=== PATIENT | female | born 1940 | race Caucasian/White ===

== ENCOUNTER 2019-11-02 23:06 | Emergency (ER) | payer MEDICARE, OTHER ==
[2019-11-02] MEDS ORDERED: Ondansetron ODT 4 MG TAB ONE (23:24)
[2019-11-02 23:39] LABS: #Eosinphils 0.1 thou/uL (0.0-0.7); #Lymphocytes 0.9 thou/uL (1.20-3.40); #Monocytes 0.5 thou/uL (0.11-0.59); #Neutrophils 6.5 thou/uL (1.40-6.50); %Basophils 0.1 % (0.0-1.0); %Eosinophils 0.7 % (0.0-10.0); %Lymphocytes 10.9 % (21.0-51.0); %Neutrophils 82.3 % (42.0-75.0); Mean Corpuscular HGB CONC 30.9 g/dL (32.0-36.0); Mean Corpuscular Hemoglobin 23.1 pg (27.0-31.0); Mean Platelet Volume 10.3 fL (7.4-10.4); Platelet Count 219 thou/uL (130-400); RBC Distribution Width 17.3 % (11.5-14.5); White Blood Cell (WBC) Count 7.9 thou/uL (4.8-10.8)
--- NOTE | 2019-11-02 23:45 | CT ---
CT Brain WO Con: 11/02/2019 11:24 PM CLINICAL HISTORY: Fall with head injury. IMAGING TECHNIQUE: Multiple CT images were obtained of the brain without IV contrast. COMPARISON: None. FINDINGS: Brain: There is generalized cerebral and cerebellar atrophy. There is mild chronic small vessel whit e matter ischemic change. Ventricles: Normal. No hydrocephalus. Skull: Intact. Visualized Paranasal sinuses: Clear. Mastoid air cells:Clear. Extracranial soft tissues:Normal. IMPRESSION: No acute intracranial abnormality.
[2019-11-02 23:53] LABS: ALT (SGPT) 9 U/L (8-55); AST (SGOT) 15 U/L (5-34); Albumin 4.1 g/dL (3.4-4.8); Alkaline Phosphatase 56 U/L (40-110); Anion Gap 18 mmol/L (10-20); BUN (Urea Nitrogen) 24 mg/dL (9.8-20.1); Bilirubin, Total 0.5 mg/dL (0.2-1.2); Calc. Creatinine Clearance 0 mL/min (70-130); Calcium 9.2 mg/dL (7.8-10.44); Carbon Dioxide 25 mmol/L (23-31); Chloride 97 mmol/L (98-107); Estimated GFR-MDRD 49; Globulin 2.2 g/dL (2.4-3.5); Glucose 234 mg/dL (83-110); Potassium 4.9 mmol/L (3.5-5.1); Protein, Total 6.3 g/dL (6.0-8.3); Sodium 135 mmol/L (136-145)
--- NOTE | 2019-11-03 00:13 | RAD ---
Chest AP view INDICATION: Fall with chest pain COMPARISON: April 03, 2011 FINDINGS: Lungs: Chronic lung changes are similar appearing. No consolidation is evident. Cardiac silhouette: There is been interval post-CABG change. There is a long endograft stent overlyi ng the left heart border. Pulmonary vasculature: Normal Pleural spaces: No pleural effusion or pneumothorax is demonstrated. Upper abdomen: No abnormality seen. Osseous structures: No acute osseous abnormality. Additional findings: None. IMPRESSION: No acute cardiopulmonary abnormality.
--- NOTE | 2019-11-03 00:14 | RAD ---
AP view of the pelvis INDICATION: Fall with pelvic pain COMPARISON: None. FINDINGS: Bones: Diffuse osteopenia. No acute fracture or subluxation demonstrated. Hips: Mild degenerative change of both hips. SI joints and symphysis pubis: Normal appearing. Intrapelvic contents: There are severe vascular calcifications seen involving the visualized vasculature. There are surgica l clips within the right inguinal region. IMPRESSION: No acute osseous abnormality.
--- NOTE | 2019-11-03 00:15 | RAD ---
XR Hip Lt 2-3 View INDICATION: Fall with left hip pain COMPARISON: None FINDINGS: Bones: No acute osseous abnormality. Bone mineralization appears within normal limits. Hip joint: Mild left hip osteoarthrosis. SI joints and symphysis pubis: Radiographically normal. Intrapelvic contents: Visualized bowel gas pattern is within normal limits. Surrounding soft tissues: There are severe vascular calcifications seen involving the visualized vasculature. There is injectio n granuloma overlying the left gluteal region. IMPRESSION: 1. No acute osseous abnormality.
--- NOTE | 2019-11-03 00:15 | RAD ---
XR Tib Fib Lt Leg 2 View INDICATION: Fall with left leg pain FINDINGS: Bones: No acute fracture or subluxation is evident. Joints: No acute abnormality. Soft tissues: No radiopaque foreign body is evident. IMPRESSION: No acute osseous abnormality.
--- NOTE | 2019-11-03 00:16 | RAD ---
XR Elbow Rt 4 View STANDARD INDICATION: Fall with right elbow pain FINDINGS: Bones: No acute fracture or subluxation is evident.. Joints: No joint capsular distention. Radiocapitellar alignment appears within normal limits. Soft tissues: There is soft tissue swelling involving the posterior and lateral aspect of the distal right arm. IMPRESSION: No acute osseous abnormality.
[2019-11-03 01:43] LABS: Bacteria/HPF 3+ HPF (None Seen); Bilirubin Negative (Negative); Blood, Urine Trace (Negative); Clarity Turbid (Clear); Glucose, Urine (Dipstick) Normal (Negative); Leukocyte 500 Leu/uL (Negative); Nitrite Negative (Negative); Protein, Urine (Dipstick) 20 mg/dL (Neg-Trace); Squamous Epithelial 0-3 HPF (0-3); Urobilinogen Normal mg/dL (Less than 2); WBC/HPF Greater than 50 HPF (0-3)
== END 2019-11-03 04:07 | disposition home or self-care (01) ==
LOC: ERS 23:06
DX: S81.812A Laceration without foreign body, left lower leg, initial encounter (principal); S41.111A Laceration without foreign body of right upper arm, initial encounter; R51 Headache; N39.0 Urinary tract infection, site not specified; D64.9 Anemia, unspecified; R11.2 Nausea with vomiting, unspecified; I10 Essential (primary) hypertension; F32.9 Major depressive disorder, single episode, unspecified; Z79.82 Long term (current) use of aspirin; Z79.899 Other long term (current) drug therapy; W06.XXXA Fall from bed, initial encounter
CPT/HCPCS: 36415; 70450; 71045; 72170; 80053; 81003; 81015; 82274; 84484; 85025; 93005; Q0162

== ENCOUNTER 2020-02-11 11:40 | Emergency (ER) | payer MEDICARE ==
[2020-02-11] MEDS ORDERED: Morphine 4 MG/ML VIAL ONE (12:47)
--- NOTE | 2020-02-11 13:04 | CT ---
EXAM: CT of the cervical spine without contrast HISTORY: Neck pain after falling with head trauma COMPARISON: None TECHNIQUE: Multiple contiguous axial images were obtained in a CT of the cervical spine without contr ast. Sagittal and coronal reformats were performed. FINDINGS: The vertebral bodies and intervertebral discs demonstrate normal height and alignment witho ut fracture or subluxation. No degenerative changes are present. No prevertebral soft tissue swelling is seen. The posterior facets are well aligned. Normal alignment of the skull base with the cervical spine is seen. The lung apices are unremarkable. Calcifications are seen in the carotid arteries. IMPRESSION: No evidence of acute osseous abnormality of the cervical spine.
--- NOTE | 2020-02-11 13:05 | CT ---
Exam: Head CT without contrast HISTORY: Fall. Posttraumatic pain. COMPARISON: none FINDINGS: Hemorrhage: No intraparenchymal hemorrhage or extra-axial hematoma. Brain parenchyma: Cortical gomez-white matter differentiation is preserved. No mass effect or midline shift. Basilar cisterns are patent.Stable calcification in the midbrain Ventricular system: Ventricles and sulci are patent and symmetric. Calvarium: Intact. Sinuses and mastoid air cells: Adequate aeration. Facial soft tissues: Post traumatic changes in the popliteal soft tissues and left frontal scalp. IMPRESSION: 1 No intracranial posttraumatic sequelae. 2. Post traumatic changes along the facial soft tissues and left frontal scalp
--- NOTE | 2020-02-11 13:06 | CT ---
EXAM: CT face without contrast HISTORY: Facial trauma COMPARISON: None TECHNIQUE: Multiple contiguous axial images were obtained and a CT of the face without contrast. Sagi ttal and coronal reformats were performed. FINDINGS: No facial fractures are identified. Left periorbital and facial soft tissue swelling is se en. The globes and retrobulbar soft tissues are unremarkable. The visualized paranasal sinuses are well aerated without evidence of opacification. The mastoid air cells are well aerated. Visualized intracranial structures are unremarkable. IMPRESSION: No evidence of facial fracture
[2020-02-11] MEDS ORDERED: Ondansetron PF 4 MG/2 ML Vial ONE (13:20)
--- NOTE | 2020-02-11 13:43 | RAD ---
EXAM: 3 views of the right wrist HISTORY: Wrist pain after fall COMPARISON: None FINDINGS: 3 views of the right wrist shows a fracture of the distal radius which may be intra-articul ar. Mild surrounding soft tissue swelling is seen. No degenerative changes are present. IMPRESSION: Distal radius fracture
== END 2020-02-11 14:34 | disposition home or self-care (01) ==
LOC: ERS 11:40
DX: S52.501A Unspecified fracture of the lower end of right radius, initial encounter for closed fracture (principal); S00.11XA Contusion of right eyelid and periocular area, initial encounter; S00.12XA Contusion of left eyelid and periocular area, initial encounter; I25.10 Atherosclerotic heart disease of native coronary artery without angina pectoris; E11.9 Type 2 diabetes mellitus without complications; K21.9 Gastro-esophageal reflux disease without esophagitis; F31.9 Bipolar disorder, unspecified; Z79.84 Long term (current) use of oral hypoglycemic drugs; Z79.891 Long term (current) use of opiate analgesic; Z79.899 Other long term (current) drug therapy; Z79.82 Long term (current) use of aspirin; W01.0XXA Fall on same level from slipping, tripping and stumbling without subsequent striking against object, initial encounter
CPT/HCPCS: 29125; 70450; 70486; 72125; 96374; 96375; J2270; J2405

== ENCOUNTER 2020-02-16 09:34 | Outpatient (CLI) | payer MEDICARE, OTHER ==
[2020-02-16 14:33] LABS: Hemoglobin 12.5 g/dL (12.0-16.0); Mean Corpuscular Hemoglobin 30.6 pg (27.0-31.0); Mean Corpuscular Volume 92.7 fL (78.0-98.0); Mean Platelet Volume 9.4 fL (7.4-10.4); Platelet Count 186 thou/uL (130-400); RBC Distribution Width 18.5 % (11.5-14.5); Red Blood Cell (RBC) Count 4.08 mill/uL (4.20-5.40); White Blood Cell (WBC) Count 5.3 thou/uL (4.8-10.8)
[2020-02-16 14:42] LABS: Anion Gap 13 mmol/L (10-20); BUN (Urea Nitrogen) 34 mg/dL (9.8-20.1); Calc. Creatinine Clearance 0 mL/min (70-130); Calcium 9.2 mg/dL (7.8-10.44); Carbon Dioxide 27 mmol/L (23-31); Chloride 104 mmol/L (98-107); Estimated GFR-MDRD 68; Glucose 133 mg/dL (83-110); Potassium 4.2 mmol/L (3.5-5.1); Sodium 140 mmol/L (136-145)
[2020-02-17 13:48] LABS: SARS-CoV-2 MS2 Positive; SARS-CoV-2 N Gene Negative; SARS-CoV-2 S Gene Negative; SARS-CoV-2 orf1ab Negative
== END 2020-02-16 09:35 | disposition home or self-care (01) ==
LOC: LABBT 09:34
PROVIDERS: ATTEND Orthopaedic Surgery
DX: Z01.818 Encounter for other preprocedural examination (principal); Z11.59 Encounter for screening for other viral diseases; S52.501A Unspecified fracture of the lower end of right radius, initial encounter for closed fracture
CPT/HCPCS: 80048; 85027; U0003; 87635; 93005; 93010

== ENCOUNTER 2020-02-18 09:59 | Day surgery (SDC) | payer MEDICARE ==
[2020-02-16 14:58] VITALS: BMI 22.6
[2020-02-18] MEDS ORDERED: Bupivacaine HCl 0.5%/Epinephrine 1:200,000/PF 30 ml Vial ONE (11:52)
[2020-02-18] MEDS ORDERED: PROPOFOL 200 MG/20 ML VIAL ONE (11:52)
[2020-02-18] MEDS ORDERED: Fentanyl 100 MCG/2 ML VIAL ONE ×2 (13:39→16:02)
[2020-02-18] MEDS ORDERED: Propofol 1,000 MG/100 ML VIAL IV ONE (16:14)
[2020-02-18] MEDS ORDERED: Ketamine 50 MG/ML (10ML VIAL) ONE (16:14)
--- NOTE | 2020-02-18 17:29 | RAD ---
RIGHT WRIST TWO VIEWS: 02/18/20 HISTORY: Intraoperative films. These films show pinning of a distal radial fracture. IMPRESSION: Pin placement related to distal radial fracture. POS: ZACH
[2020-02-18] MEDS ORDERED: HYDROcodone/Acetaminophen 5/325 mg Tablet ONE (18:04)
--- NOTE | 2020-02-18 22:35 | OP ---
DATE OF PROCEDURE: 02/18/2020 PROCEDURES PERFORMED: Closed reduction and percutaneous pining of distal radius fracture. PREOPERATIVE DIAGNOSIS: Displaced left distal radial fracture. POSTOPERATIVE DIAGNOSIS: Displaced left distal radial fracture. COMPLICATIONS: None. ESTIMATED BLOOD LOSS: Minimal. ERECTING CRANE OPERATOR: Davy Mueller PA-C INDICATIONS: Ms. García is a 79-year-old female, who has fallen and fractured her left distal radius. She has been indicated for open reduction and internal fixation to restore the length of the radius and restore anatomic alignment. Risks have been reviewed in detail. She has elected to proceed with the operation. DESCRIPTION OF PROCEDURE: Ms. García was identified in the preoperative holding area. Her correct extremity was marked. She was carried to the operating room. She was positioned supine. General anesthesia was induced. A multidisciplinary time- out was performed. The left upper extremity was prepped and draped in sterile fashion. We began the procedure by evaluation the fracture under intraoperative x-ray. We pulled traction on the arm and were able to reduce the distal radius fracture back into its anatomic position. We restored length as well as volar tilt. We confirmed this on orthogonal planes. Next we made a small incision over the radial styloid. A K wire was inserted into the radial styloid across the fracture. We placed a second K wire in a crossed pattern from dorsal to volar this stabilize the fracture well. There was no change in position. We took final x-ray images, confirming hardware placement and alignment was appropriate. A sterile dressing and a splint was placed. The patient was taken to the recovery room in good condition. Job ID: [id number] MTDD
== END 2020-02-18 19:15 | disposition home or self-care (01) ==
LOC: SDC 09:59
PROVIDERS: ATTEND Orthopaedic Surgery
PROC: 0PSH34Z Reposition Right Radius with Internal Fixation Device, Percutaneous Approach (ICD-10-PCS; principal; 2020-02-18)
PROC: 3E0T3BZ Introduction of Anesthetic Agent into Peripheral Nerves and Plexi, Percutaneous Approach (ICD-10-PCS; 2020-02-18)
DX: S52.531A Colles' fracture of right radius, initial encounter for closed fracture (principal); G89.18 Other acute postprocedural pain; I13.0 Hypertensive heart and chronic kidney disease with heart failure and stage 1 through stage 4 chronic kidney disease, or unspecified chronic kidney disease; E11.22 Type 2 diabetes mellitus with diabetic chronic kidney disease; N18.3 Chronic kidney disease, stage 3 (moderate); I50.32 Chronic diastolic (congestive) heart failure; E78.2 Mixed hyperlipidemia; F41.1 Generalized anxiety disorder; G89.4 Chronic pain syndrome; I25.10 Atherosclerotic heart disease of native coronary artery without angina pectoris; Z79.02 Long term (current) use of antithrombotics/antiplatelets; Z79.82 Long term (current) use of aspirin; Z79.84 Long term (current) use of oral hypoglycemic drugs; Z79.899 Other long term (current) drug therapy; Z88.2 Allergy status to sulfonamides; Z88.5 Allergy status to narcotic agent; Z88.6 Allergy status to analgesic agent; Z88.8 Allergy status to other drugs, medicaments and biological substances; Z95.1 Presence of aortocoronary bypass graft; Z95.5 Presence of coronary angioplasty implant and graft; W19.XXXA Unspecified fall, initial encounter
CPT/HCPCS: 76000; J0670; J0690; J2704; J3010

== ENCOUNTER 2020-06-30 14:00 | Inpatient (IN) | payer MEDICARE ==
[~2020-06-30 14:00] MED LIST: Iopamidol-370 76% 500 ML 1 ML ONE
[2020-06-30] MEDS ORDERED: Ondansetron PF 4 MG/2 ML Vial ONE (15:20)
[2020-06-30 15:22] LABS: #Lymphocytes 1.8 thou/uL (1.20-3.40); #Monocytes 1.2 thou/uL (0.11-0.59); #Neutrophils 6.1 thou/uL (1.40-6.50); %Basophils 0.1 % (0.0-1.0); %Eosinophils 0.5 % (0.0-10.0); %Lymphocytes 19.5 % (21.0-51.0); %Monocytes 13.1 % (0.0-10.0); %Neutrophils 66.8 % (42.0-75.0); Mean Corpuscular Hemoglobin 34.3 pg (27.0-31.0); Mean Corpuscular Volume 97.9 fL (78.0-98.0); Mean Platelet Volume 7.4 fL (7.4-10.4); Platelet Count 327 thou/uL (130-400); RBC Distribution Width 12.5 % (11.5-14.5); Red Blood Cell (RBC) Count 4.67 mill/uL (4.20-5.40); White Blood Cell (WBC) Count 9.1 thou/uL (4.8-10.8)
[2020-06-30 15:37] LABS: Anion Gap 19 mmol/L (10-20); BUN (Urea Nitrogen) 19 mg/dL (9.8-20.1); Calc. Creatinine Clearance 0 mL/min (70-130); Carbon Dioxide 24 mmol/L (23-31); Chloride 94 mmol/L (98-107); Estimated GFR-MDRD 41; Sodium 135 mmol/L (136-145)
[2020-06-30 15:38] LABS: ALT (SGPT) 8 U/L (8-55); AST (SGOT) 16 U/L (5-34); Albumin 4.5 g/dL (3.4-4.8); Alkaline Phosphatase 83 U/L (40-110); Bilirubin, Total 0.5 mg/dL (0.2-1.2); Calcium 9.3 mg/dL (7.8-10.44); Globulin 3.2 g/dL (2.4-3.5); Glucose 209 mg/dL (83-110); Lipase 15 U/L (8-78); Protein, Total 7.7 g/dL (6.0-8.3)
[2020-06-30 15:44] LABS: Potassium 2.4 mmol/L (3.5-5.1)
[2020-06-30 15:59] LABS: CKMB 2.4 ng/mL (0-6.6)
[2020-06-30] MEDS ORDERED: Aspirin 325 MG TAB ONE (16:38)
--- NOTE | 2020-06-30 16:57 | CT ---
CT ABDOMEN AND PELVIS WITH IV CONTRAST: Date: 06/30/2020 INDICATION: Abdominal pain. Diarrhea. Comparison made to prior CT abdomen and pelvis from [address] of chest upper abdomen from 2016. FINDINGS: Lung bases clear. Liver, spleen, and pancreas appear unremarkable. Stomach and duodenum unremarkable. Adrenal glands normal. Left renal cyst from the superior left kidney is a stable finding. This cyst measures up to 5.0 cm di ameter. There are numerous smaller cysts seen in both kidneys measuring up to 1.0 cm. Kidneys otherwi se unremarkable. Small bowel loops normal caliber. Review of the colon shows fluid and scattered stool throughout the colon consistent with history of d iarrhea. There is mural thickening throughout the colon, most prominent involving the left colon and sigmoid. Surrounding inflammatory haziness is seen involving the sigmoid and rectum. No significant d iverticulosis. Colitis is indicated. Recommend GI consultation and consider colonoscopy. Aorta is calcified but normal caliber. No adenopathy. No significant free fluid. Urinary bladder is distended and otherwise unremarkable. Patient appears to be post hysterectomy. Osseous structures unremarkable. Degenerative disc changes in the lumbar spine most prominent at L5-S 1. Anterolisthesis at L4-5. IMPRESSION: 1. Mural thickening of the colon, most prominent involving the left colon and sigmoid with surroundi ng hazy inflammatory change. Colitis is suspected. Consider colonoscopy to further evaluate. 2. There are renal cystic lesions as described with a large cyst from the superior left kidney which is stable. POS: AGW
[2020-06-30 17:22] LABS: Bilirubin Negative (Negative); Blood, Urine Trace (Negative); Glucose, Urine (Dipstick) Negative (Negative); Ketone, Urine Negative (Negative); Leukocyte Negative (Negative); Nitrite Negative (Negative); Protein, Urine (Dipstick) Negative (Neg-Trace); Urobilinogen 0.2 mg/dL (Less than 2); pH, Urine 5.5 (5.0-9.0)
[2020-06-30 17:28] LABS: Clarity Clear (Clear)
[2020-06-30 17:31] LABS: Bacteria/HPF None Seen HPF (None Seen); Squamous Epithelial 0-3 HPF (0-3); WBC/HPF 0-3 HPF (0-3)
[2020-06-30] MEDS ORDERED: Acetaminophen 325 MG TAB PO PRN (17:51)
[2020-06-30] MEDS ORDERED: Ondansetron PF 4 MG/2 ML Vial IVP PRN (17:51)
[2020-06-30] MEDS ORDERED: Magnesium 2 GM/50 ML 2 GM in Premix Bag 1 BAG IVPB SCH (18:00)
[2020-06-30] MEDS ORDERED: metroNIDAZOLE 500 MG/100 ML BAG ONE (18:07)
[2020-06-30] MEDS ORDERED: Magnesium 2 GM/50 ML BAG (IN WATER) ONE (18:07)
[2020-06-30 18:40] LABS: Lactic Acid 1.1 mmol/L (0.5-2.2)
[2020-06-30 18:41] LABS: Troponin I 0.061 ng/mL (< 0.028)
[2020-06-30] MEDS ORDERED: Ciprofloxacin Lactate/D5W 200 MG in Premix Bag 1 BAG IVPB ONE (19:15)
[2020-06-30 22:23] LABS: Troponin I 0.065 ng/mL (< 0.028)
[2020-06-30] MEDS ORDERED: Ciprofloxacin Lactate/D5W 200 MG in Premix Bag 1 BAG IVPB SCH (22:30)
[2020-06-30] MEDS: metroNIDAZOLE 500 MG in Premix Bag 1 BAG IVPB SCH (22:47)
[2020-06-30] MEDS: TICAGRELOR 90 MG TABLET PO SCH (22:49)
[2020-06-30] MEDS: Montelukast Sodium 10 mg Tablet PO SCH (22:49)
[2020-06-30] MEDS: Ferrous Sulfate 325 MG TAB PO SCH (22:50)
[2020-06-30] MEDS ORDERED: ALPRAZolam 1 MG TAB PO SCH (23:45)
--- NOTE | 2020-07-01 00:31 | HP ---
CHIEF COMPLAINT: Abdominal pain, diarrhea. HISTORY OF PRESENT ILLNESS: The patient is a 79-year-old female with a history of coronary artery disease. She states that she has had about seven stents. She currently resides in a [facility]. She presents to the hospital with worsening diarrhea, which has been going on for the past four months. She states that she has been having some abdominal pain associated with that. She has had decreased appetite for the past few months. She denies any fevers or chills. The patient states that she has never had a colonoscopy. I was notified that in the jail she was checked for COVID and C difficile, which were negative. PAST MEDICAL HISTORY: She has a history of coronary artery disease. She has a history of falls, urinary tract infections, hypertension, diabetes, chronic kidney disease stage 3. She has seen Dr. Strauss in the past. She has had a bypass, iron deficiency anemia, general anxiety disorder, and chronic pain syndrome. PAST SURGICAL HISTORY: She has had stents x7 and coronary artery bypass grafting . FAMILY HISTORY: Mother, unknown history of heart disease or stroke. SOCIAL HISTORY: She is a nonsmoker and nonalcoholic drinker. She lives in assisted living. She is a full code. ALLERGIES: SHE IS ALLERGIC TO BONIVA, LISINOPRIL, MORPHINE AND TRICOR. MEDICATIONS: As of the followin. Metformin 500 mg b.i.d. 2. Metoprolol 50 mg daily. 3. Furosemide 20 mg b.i.d. 4. Atorvastatin 40 mg daily. 5. Ipratropium one puff every 6 hours. 6. Singulair 10 mg daily. 7. Alprazolam 0.5 twice a day. 8. Advair 2 puffs twice a day. 9. Brilinta 90 mg twice a day. 10. Aspirin 81 mg daily. 11. Ranexa 1000 mg twice a day. REVIEW OF SYSTEMS: All negative except for the ones mentioned above in the HPI. PHYSICAL EXAMINATION: VITAL SIGNS: Temperature of 97.8, respirations 16, 98% on room air, blood pressure 122/69, heart rate 84. GENERAL: She is awake, alert, and oriented x3. Does not appear in distress. She appears frail. CV: S1, S2 present. No murmurs, rubs, or gallops. LUNGS: Clear to auscultation. No rhonchi or wheezes noted. ABDOMEN: Soft. Bowel sounds are present x2. She has pain upon palpation to all quadrants. EXTREMITIES: Lower extremity, no edema. Pedal pulses are present x2. NEUROVASCULAR: No focal deficits noted. SKIN: No cuts, lesions or bruises noted. LABORATORY RESULTS: As of the following; lactic is 1.1. Urine appeared normal. Magnesium 1.5. Troponin of 0.080. She denies any chest pain. Lipase was normal. Sodium of 135, potassium of 2.4, BUN of 19, creatinine 1.25. Her lactic acid initially was 2.5. WBCs of 9.1, hemoglobin of 16.0, hematocrit of 45.7. Her platelets were 327. She did have a CT of abdomen and pelvis, which indicated mural thickening of the colon, most prominent involving the left colon and sigmoid and surrounding hazy inflammatory changes. Colitis should be suspected. Consider colonoscopy. She also has a renal cyst. ASSESSMENT AND PLAN: The patient is a very pleasant 79-year-old female, who presents to the hospital with diarrhea. 1. Chronic diarrhea. She has had diarrhea for about four months. We will check stool studies. We will get GI to see this patient. I will get TSH. This patient could have possible ischemic colitis, this is a possibility given her significant history of coronary artery disease. However, will rule out infectious first. May also get stool osmolality to help further differentiate. I will start some IV fluids and I will start her on antibiotics, Cipro and Flagyl for now. We will recheck her COVID and her Clostridium difficile. 2. Renal cyst. She needs to follow up this as an outpatient. 3. Electrolyte abnormalities. We will replace it. 4. Acute kidney injury. We will continue hydration and continue to monitor. 5. Urinary retention. The patient had significant amount of urine in her bladder. She required catheterization. We will continue to monitor this. 6. Mildly elevated troponins, could be demand related. She has not had an echocardiogram for a significantly long period of time. I will go ahead and order an echocardiogram. She denies any chest pain at this time. 7. Deep venous thrombosis prophylaxis. I will put patient on some heparin and I will also resume her home medications. Job ID: [id number]
[2020-07-01] MEDS: NS 0.9% w/ 40 MEQ KCL 1,000 ML IV SCH ×7 (00:45→21:44)
[2020-07-01 01:59] LABS: #Eosinphils 0.1 thou/uL (0.0-0.7); #Lymphocytes 1.3 thou/uL (1.20-3.40); #Neutrophils 4.3 thou/uL (1.40-6.50); %Basophils 0.7 % (0.0-1.0); %Lymphocytes 19.9 % (21.0-51.0); %Monocytes 14.6 % (0.0-10.0); %Neutrophils 63.9 % (42.0-75.0); Hemoglobin 13.1 g/dL (12.0-16.0); Mean Corpuscular HGB CONC 36.1 g/dL (32.0-36.0); Mean Corpuscular Hemoglobin 35.6 pg (27.0-31.0); Mean Corpuscular Volume 98.8 fL (78.0-98.0); Mean Platelet Volume 7.3 fL (7.4-10.4); Platelet Count 223 thou/uL (130-400); RBC Distribution Width 12.5 % (11.5-14.5); Red Blood Cell (RBC) Count 3.66 mill/uL (4.20-5.40); White Blood Cell (WBC) Count 6.7 thou/uL (4.8-10.8)
[2020-07-01 02:17] LABS: Troponin I 0.069 ng/mL (< 0.028)
[2020-07-01 02:24] LABS: Anion Gap 12 mmol/L (10-20); BUN (Urea Nitrogen) 13 mg/dL (9.8-20.1); Calc. Creatinine Clearance 47 mL/min (70-130); Calcium 7.8 mg/dL (7.8-10.44); Carbon Dioxide 21 mmol/L (23-31); Chloride 108 mmol/L (98-107); Estimated GFR-MDRD 81; Glucose 139 mg/dL (83-110); Magnesium 1.6 mg/dL (1.6-2.6); Potassium 2.5 mmol/L (3.5-5.1); Sodium 138 mmol/L (136-145)
[2020-07-01] MEDS: metroNIDAZOLE 500 MG in Premix Bag 1 BAG IVPB SCH ×3 (03:30→18:50)
[2020-07-01] MEDS: Ferrous Sulfate 325 MG TAB PO SCH ×2 (08:43→10:51)
[2020-07-01] MEDS: Enoxaparin Sodium 40 MG/0.4 ML SYRINGE SC SCH ×2 (08:43→11:30)
[2020-07-01] MEDS: Aspirin 81 mg Enteric Coated Tablet PO SCH ×2 (08:43→10:51)
[2020-07-01] MEDS: TICAGRELOR 90 MG TABLET PO SCH ×2 (08:43→10:52)
[2020-07-01] MEDS: Atorvastatin Calcium 40 MG TAB PO SCH ×2 (08:44→10:51)
[2020-07-01 14:52] LABS: SARS-CoV-2 MS2 Positive; SARS-CoV-2 N Gene Negative; SARS-CoV-2 S Gene Negative; SARS-CoV-2 by NAA Not Detected (NotDetected); SARS-CoV-2 orf1ab Negative
--- NOTE | 2020-07-01 17:56 | PDOC.HOSPP ---
- Subjective Encounter Date: 07/01/20 Encounter Time: 17:54 Subjective: This is a 79-year-old female who was admitted overnight with a complaint of ongoing diarrhea for the past couple months. She recently ruled out for C. difficile colitis just under a week ago. She continues to have profuse watery diarrhea. She had no fever and no abdominal pain. She had a CT of the abdomen and pelvis that showed what appears to be sigmoid colitis. GI was asked to evaluate her. We will continue supportive care with volume resuscitation and IV antibiotics. Her electrolytes will be replaced. - Objective Vital Signs & Weight: Vital Signs (12 hours) Pulse Pulse BP BP 07/01/20 09:55 75 80 131/58 L 146/61 H Weight Admit Weight 100 lb 9 oz Weight 100 lb 9 oz I&O: 06/30/20 07/01/20 07/02/20 06:59 06:59 06:59 Intake Total 2074 Balance 2074 Result Diagrams: 07/01/20 01:44 07/01/20 01:44 Radiology Reviewed by me: Yes EKG Reviewed by me: Yes Hospitalist ROS - Review of Systems Constitutional: reports: fever Gastrointestinal: reports: nausea, diarrhea - Medication Medications: Active Medications Generic Name Dose Route Start Last Admin Trade Name Freq PRN Reason Stop Dose Admin Aspirin 81 mg 07/01/20 09:00 07/01/20 10:51 Aspirin 81 Mg Enteric Coated Tablet PO Not Given DAILY DORY Atorvastatin Calcium 40 mg 07/01/20 09:00 07/01/20 10:51 Atorvastatin Calcium 40 Mg Tab PO Not Given DAILY DORY Enoxaparin Sodium 40 mg 07/01/20 09:00 07/01/20 11:30 Enoxaparin Sodium 40 Mg/0.4 Ml Syringe SC 40 mg 0900 DORY Administration Potassium Chloride/Sodium Chloride 1,000 mls @ 250 mls/hr 06/30/20 17:30 07/01/20 11:30 Ns 0.9% W/ 40 Meq Kcl IV 1,000 mls .Q4H DORY Administration Metronidazole 500 mg/ Device 100 mls @ 100 mls/hr 06/30/20 18:00 07/01/20 10:17 IVPB 100 mls 0200,1000,1800 DORY Administration Ciprofloxacin/Dextrose 400 mg/ 200 mls @ 200 mls/hr 07/01/20 09:00 07/01/20 08:46 Device IVPB 200 mls Q12HR DORY Administration Montelukast Sodium 10 mg 06/30/20 21:00 06/30/20 22:49 Montelukast Sodium 10 Mg Tablet PO 10 mg HS DORY Administration Ranolazine 1,000 mg 06/30/20 21:00 07/01/20 10:52 Ranolazine 500 Mg Tab PO Not Given BID DORY - Exam General Appearance: awake alert, ill appearing Eye: PERRL ENT: normocephalic atraumatic, dry oral mucosa Neck: supple, symmetric, no lymphadenopathy Heart: RRR, no murmur, no gallops, no rubs, normal peripheral pulses Respiratory: CTAB, no wheezes, no rales, normal chest expansion Gastrointestinal: soft, non-tender, non-distended, normal bowel sounds Neurological: cranial nerve grossly intact, normal sensation to touch, no focal deficits Musculoskeletal: normal tone Psychiatric: normal affect, A&O x 3 Hosp A/P (1) Colitis Code(s): K52.9 - NONINFECTIVE GASTROENTERITIS AND COLITIS, UNSPECIFIED Status: Acute Plan: Involving the sigmoid colon. I agree with empiric IV antibiotics. Continue volume resuscitation. GI services were consulted and we await their recommendations. (2) Diarrhea Code(s): R19.7 - DIARRHEA, UNSPECIFIED Status: Acute Qualifiers: Diarrhea type: infectious Qualified Code(s): A09 - Infectious gastroenteritis and colitis, unspecified - Plan old records reviewed/req, continue antibiotics, PT/OT, DVT proph w/SCDs
[2020-07-01] MEDS: ALPRAZolam 1 MG TAB PO SCH (20:48)
[2020-07-01] MEDS: Montelukast Sodium 10 mg Tablet PO SCH (20:48)
[2020-07-01] MEDS: valACYclovir 500 MG TAB PO SCH (20:48)
[2020-07-01] MEDS ORDERED: ALPRAZolam 1 MG TAB PO SCH (21:00)
--- NOTE | 2020-07-01 22:29 | CON ---
DATE OF CONSULTATION: REASON FOR CONSULT: Diarrhea. HISTORY OF PRESENT ILLNESS: Ms. García's history comes from reviewing the chart, talking to the nurses at the [facility], and talking to the nurse here in the hospital as well as the admitting physician. Ms. García is a 79-year-old. She is a poor historian. She states that she has been having diarrhea for five months and she has been admitted to kind of figure out what is going on with her. She cannot quantify how often the stool is or if it is loose all the time or watery. She states she is having sharp pain in her lower abdomen after she reports she has the diarrhea. She does not know if there is blood there. She states that she is here to find out. In talking with the nurse, she has definitely had loose stools about three or four today. It has been watery. There has been no overt blood noted. Patient has had no fever. She has not complained of any nausea or vomiting here. In talking with the nurse at the [facility], the patient seems to become more forgetful more recently. Also, she was complaining of diarrhea probably for the last 3 to 4 weeks. The nurse does not recall whether or not she has had antibiotics, but reported that she had been tested for COVID at the end of May and for Clostridium difficile and both tests were negative. Ms. García was seen by my partner, Dr. Ольга Martines, on a virtual visit about a month ago, but the focus of her complaints at that time were reflux and regurgitation with changing her medications to lansoprazole and adding a nocturnal H2 oanh. It seemed that her symptoms were much better at her visit yesterday, however, the visit yesterday, the focus was on diarrhea. Dr. Martines really could not make head or tails of the symptoms. Apparently, the patient's primary care physician or the mid-level provider was there recently to see her at the assisted living [facility] and they could not really make much of her symptoms and had placed her on some Lomotil p.r.n. As the patient was having quite a bit of diarrhea per the nurses and pretty upset, the recommendation was for her to be admitted to the hospital for further evaluation. The patient denies any knowledge of melena, hematochezia, or hematemesis. She denies having fever, but she tells me to check with the assisted living facility she is at. She does not know if she has been on recent antibiotics. She reports she has been treated at [facility] and at [facility] and in [place] in the past. She gets quite frustrated when I asked her questions about her medical history. PAST MEDICAL HISTORY: It seems she is diabetic and has been on metformin. She has also had repetitive urinary tract infections. She has a history of hypertension; chronic kidney disease, stage 3; history of anemia in the past; history of coronary artery bypass in the past; anxiety disorder; and reflux. PAST SURGICAL HISTORY: Cardiac stent x7, coronary artery bypass grafting, the time of this is unknown, seems that she may have seen Dr. Swift in the past. FAMILY HISTORY: Unknown. Mother may have had heart disease or stroke. SOCIAL HISTORY: Patient states she has not been a drinker. She is not a smoker. She lives in an assisted living at [facility]. I have tried to contact their listed primary contact, her daughter, Melany Robins, and there was no answer. Apparently, talking with the nurses at the assisted living, they made a call yesterday. They were telling me that if she was going to be admitted and had to leave a voicemail, have not heard back. ALLERGIES: BONIVA, LISINOPRIL, MORPHINE, AND TRICOR. MEDICATIONS: At the assisted living facility include; 1. Zofran. 2. Ipratropium. 3. Prevacid. 4. Alprazolam. 5. Hydrocodone. 6. Aspirin. 7. Montelukast. 8. Advair. 9. Combivent. 10. Iron. 11. Furosemide 40 a day. 12. Valtrex. 13. Atorvastatin. 14. Metoprolol. 15. Potassium. 16. Metformin 500 b.i.d. 17. Ranexa. 18. Brilinta. 19. Hydrocodone p.r.n. REVIEW OF SYSTEMS: Not able to be obtained as the patient is very vague about symptoms, timing of symptoms, and previous evaluations. PRESENT MEDICATIONS: 1. Tylenol. 2. Xanax. 3. Ecotrin. 4. Lipitor. 5. Cipro. 6. Lovenox. 7. Iron. 8. Metronidazole. 9. Singulair. 10. Zofran. 11. Normal saline with 40 of K. 12. Brilinta. PHYSICAL EXAMINATION: GENERAL: Patient is trying to climb in back into bed. The nurse is with her. VITAL SIGNS: Temperature is 96.3; 97.6 last night. She has been afebrile since admission. Pulse 75, blood pressure 131/58. GENERAL: She is thin and frail. She is alert and oriented to person, place, and time. She knows what hospital she is at. She can tell me her daughter's name. Again, she is very evasive with regard to the details of her symptoms and previous evaluations. She seems very frustrated. Cannot recall about previous testing in terms of endoscopies or cross-sectional imaging, but states she is to check with the other places where she has had those done, but other than [facility], she is not clear where she has had other testing done. LUNGS: Clear. HEART: Regular without clicks or murmurs. ABDOMEN: Soft, nontender, and scaphoid. EXTREMITIES: No clubbing, cyanosis, or edema. SKIN: Without rashes. NEUROLOGIC: She has no asterixis. Reflexes are intact bilaterally. LABORATORIES: White count 6.7; hemoglobin is 13.1, it was 16 yesterday; MCV is 98; platelet count 223; hemoglobin was 9 back in October. Sodium 138, potassium 2.5, BUN and creatinine 13 and 0.7. Lactic acid was 1.1 yesterday in the ER. Magnesium is 1.6. Calcium is 7.8. Troponins were negative. TSH is 1.055 on 06/30. She has had normal lipase on admission. Albumin is 4.5, protein 7.7. AST and ALT 16 and 8, bilirubin 0.5. Magnesium 1.5 on admission, it is 1.6 this morning. Hemoglobin A1c was 6.8 in February. Urinalysis; 4 to 6 red blood cells. Back in April, she had a lot of leukocyte esterase and bacteria, ova and parasites are pending. Clostridium difficile was negative on 06/23. Stool occult blood negative on 11/13. IMAGING: CAT scan of the abdomen and pelvis performed on 06/30 showed some possible inflammation in the colon. No other abnormalities were noted. ASSESSMENT: 1. This is a 79-year-old female, who lives at an assisted living and has seen my partner, Ольга Martines once for reflux about a month ago and now more recently was admitted mainly out of frustration about being unable to figure out her exact symptoms and what was going on via telehealth visit. She reported diarrhea for five months, which was not reported on the visit just a month ago and it seems the staff indicates maybe for a couple of weeks she has had diarrhea. It is unclear if she has had antibiotics at that time. Although it appears she had a urine tract infection in April. There has been some concern at the snf unit. She has become a little more argumentative with me. She really does not know much of her history and I wonder if she is developing some dementia which is exacerbating the other factors. 2. Here, she has been found to have some inflammation possibly in her sigmoid colon and rectum on a scan, although there has been no stool studies obtained yet. 3. Hypokalemia, mild. 4. History of reflux, for which she saw my partner, Dr. Ольга Martines, recently. RECOMMENDATIONS: 1. With regard to her diarrhea, it is unclear if this is acute or chronic. We will try to get in touch with the patient's PCP. It seems some stool studies were done about a week ago and that were negative for Clostridium difficile. She is on metformin. Differential diagnosis would include ischemic colitis, but there has been no signs of bleeding or cramping; infectious colitis; diarrhea from metformin; diarrhea from a microscopic colitis. We would start with stool studies. We would try to clarify her cardiac history. We will stop her iron in light of the fact that she may need an endoscopy while she is here to figure out what her symptoms are. She would need to have a cardiac clearance or maybe discussion with her manager bank before to proceed with endoscopy as really there is not much known about the patient here from a cardiovascular risk standpoint. We will follow along with you. 2. We will again try to contact the patient's daughter. Job ID: [id number]
[2020-07-02] MEDS: metroNIDAZOLE 500 MG in Premix Bag 1 BAG IVPB SCH ×3 (01:53→17:02)
[2020-07-02 05:12] LABS: #Eosinphils 0.1 thou/uL (0.0-0.7); #Lymphocytes 1.1 thou/uL (1.20-3.40); #Monocytes 0.5 thou/uL (0.11-0.59); #Neutrophils 3.4 thou/uL (1.40-6.50); %Basophils 0.7 % (0.0-1.0); %Eosinophils 1.5 % (0.0-10.0); %Lymphocytes 21.9 % (21.0-51.0); %Monocytes 8.9 % (0.0-10.0); Hemoglobin 11.2 g/dL (12.0-16.0); Mean Corpuscular HGB CONC 34.4 g/dL (32.0-36.0); Mean Corpuscular Hemoglobin 34.6 pg (27.0-31.0); Mean Platelet Volume 7.1 fL (7.4-10.4); Platelet Count 196 thou/uL (130-400); RBC Distribution Width 12.6 % (11.5-14.5); Red Blood Cell (RBC) Count 3.25 mill/uL (4.20-5.40); White Blood Cell (WBC) Count 5.1 thou/uL (4.8-10.8)
[2020-07-02 05:27] LABS: Anion Gap 12 mmol/L (10-20); BUN (Urea Nitrogen) Less than 4 mg/dL (9.8-20.1); Calc. Creatinine Clearance 57 mL/min (70-130); Calcium 8.2 mg/dL (7.8-10.44); Carbon Dioxide 20 mmol/L (23-31); Chloride 113 mmol/L (98-107); Estimated GFR-MDRD Greater than 90; Glucose 109 mg/dL (83-110); Potassium 3.6 mmol/L (3.5-5.1); Sodium 141 mmol/L (136-145)
[2020-07-02] MEDS: Pantoprazole 40 MG VIAL IVP SCH (09:00)
[2020-07-02] MEDS: Metoprolol Tartrate 50 MG TAB PO SCH (09:00)
[2020-07-02] MEDS: Atorvastatin Calcium 40 MG TAB PO SCH (09:00)
[2020-07-02] MEDS: valACYclovir 500 MG TAB PO SCH ×2 (09:00→20:17)
[2020-07-02] MEDS: Enoxaparin Sodium 40 MG/0.4 ML SYRINGE SC SCH (09:00)
[2020-07-02] MEDS: Aspirin 81 mg Enteric Coated Tablet PO SCH (09:01)
[2020-07-02] MEDS: NS 0.9% w/ 40 MEQ KCL 1,000 ML IV SCH ×2 (11:11→20:24)
--- NOTE | 2020-07-02 13:48 | PDOC.HOSPP ---
- Subjective Encounter Date: 07/02/20 Encounter Time: 13:47 Subjective: This is a 79-year-old patient seen and examined today. She presented to the hospital with couple weeks onset of profuse watery diarrhea. She is being evaluated by GI service. She denied any recent antibiotic use. Her stool C. difficile was negative. Stool studies are still pending at this time. She had a CT of the abdomen and pelvis that showed sigmoid colitis. She is on empiric IV antibiotics. We will continue this for now. GI continues to evaluate her. I will defer to them about any potential intervention. - Objective Vital Signs & Weight: Vital Signs (12 hours) Temp Pulse Resp BP Pulse Ox 07/02/20 11:51 97.4 F L 07/02/20 11:08 73 16 112/53 L 97 07/02/20 07:20 98.4 F 85 16 121/56 L 96 07/02/20 03:50 97.7 F 86 18 117/61 98 Weight Admit Weight 100 lb 9 oz Weight 105 lb 11.2 oz I&O: 07/01/20 07/02/20 07/03/20 06:59 06:59 06:59 Intake Total 2075 2690 Output Total 300 Balance 2075 2390 Result Diagrams: 07/02/20 04:18 07/02/20 04:18 Radiology Reviewed by me: Yes EKG Reviewed by me: Yes Hospitalist ROS - Review of Systems ROS unobtainable: due to mental status Constitutional: reports: fever Gastrointestinal: reports: nausea, abdominal pain, diarrhea - Medication Medications: Active Medications Generic Name Dose Route Start Last Admin Trade Name Joseq PRN Reason Stop Dose Admin Alprazolam 0.5 mg 07/01/20 21:00 07/01/20 20:48 Alprazolam 1 Mg Tab PO 0.5 mg HS DORY Administration Aspirin 81 mg 07/01/20 09:00 07/02/20 09:01 Aspirin 81 Mg Enteric Coated Tablet PO 81 mg DAILY DORY Administration Atorvastatin Calcium 40 mg 07/01/20 09:00 07/02/20 09:00 Atorvastatin Calcium 40 Mg Tab PO 40 mg DAILY DORY Administration Enoxaparin Sodium 40 mg 07/01/20 09:00 07/02/20 09:00 Enoxaparin Sodium 40 Mg/0.4 Ml Syringe SC 40 mg 09 DORY Administration Metronidazole 500 mg/ Device 100 mls @ 100 mls/hr 06/30/20 18:00 07/02/20 11:11 IVPB 100 mls 0200,1000,1800 DORY Administration Ciprofloxacin/Dextrose 400 mg/ 200 mls @ 200 mls/hr 07/01/20 09:00 07/02/20 09:01 Device IVPB 200 mls Q12HR DORY Administration Potassium Chloride/Sodium Chloride 1,000 mls @ 75 mls/hr 07/01/20 19:45 07/02/20 11:11 Ns 0.9% W/ 40 Meq Kcl IV 1,000 mls .[id number] DORY Administration Metoprolol Tartrate 50 mg 07/02/20 09:00 07/02/20 09:00 Metoprolol Tartrate 50 Mg Tab PO 50 mg DAILY DORY Administration Montelukast Sodium 10 mg 06/30/20 21:00 07/01/20 20:48 Montelukast Sodium 10 Mg Tablet PO 10 mg HS DORY Administration Pantoprazole Sodium 40 mg 07/02/20 09:00 07/02/20 09:00 Pantoprazole 40 Mg Vial IVP 40 mg DAILY DORY Administration Ranolazine 1,000 mg 06/30/20 21:00 07/02/20 09:01 Ranolazine 500 Mg Tab PO 1,000 mg BID DORY Administration Valacyclovir HCl 500 mg 07/01/20 21:00 07/02/20 09:00 Valacyclovir 500 Mg Tab PO 500 mg BID DORY Administration - Exam General Appearance: awake alert, ill appearing ENT: normocephalic atraumatic, no oropharyngeal lesions Neck: supple, symmetric, no lymphadenopathy Heart: RRR, no murmur, no gallops, normal peripheral pulses Respiratory: CTAB, no wheezes, no rales Gastrointestinal: soft, tender to palpation Neurological: cranial nerve grossly intact, normal sensation to touch Musculoskeletal: generalized weakness Psychiatric: normal affect, A&O x 3 Hosp A/P (1) Colitis Code(s): K52.9 - NONINFECTIVE GASTROENTERITIS AND COLITIS, UNSPECIFIED Status: Acute (2) Diarrhea Code(s): R19.7 - DIARRHEA, UNSPECIFIED Status: Acute Qualifiers: Diarrhea type: infectious Qualified Code(s): A09 - Infectious gastroenteritis and colitis, unspecified - Plan #1. Sigmoid colitis. Continue empiric IV antibiotics. We appreciate GI further help. She will probably benefit from colonoscopy in the next couple weeks post discharge hospitalization. 2. Persistent diarrhea. Unclear etiology however. She ruled out for C. difficile colitis. I will treat her symptoms now. We will try her on some Questran. We will continue her Imodium.
[2020-07-02] MEDS ORDERED: GoLYTELY 4,000 ml Bottle PO SCH (14:15)
[2020-07-02] MEDS: Montelukast Sodium 10 mg Tablet PO SCH (20:17)
[2020-07-02] MEDS: ALPRAZolam 1 MG TAB PO SCH (20:17)
[2020-07-02] MEDS ORDERED: Cholestyramine/Aspartame 4 gm Packet PO SCH (22:00)
[2020-07-03] MEDS: metroNIDAZOLE 500 MG in Premix Bag 1 BAG IVPB SCH ×3 (01:09→18:06)
[2020-07-03 04:41] LABS: Anion Gap 12 mmol/L (10-20); BUN (Urea Nitrogen) Less than 4 mg/dL (9.8-20.1); Calc. Creatinine Clearance 52 mL/min (70-130); Calcium 8.2 mg/dL (7.8-10.44); Carbon Dioxide 22 mmol/L (23-31); Chloride 114 mmol/L (98-107); Estimated GFR-MDRD 86; Glucose 108 mg/dL (83-110); Potassium 4.3 mmol/L (3.5-5.1); Sodium 144 mmol/L (136-145)
[2020-07-03 04:58] LABS: Band 15 % (5-11); Eosinophils 2 % (0-10); Hemoglobin 11.6 g/dL (12.0-16.0); Lymphocytes 26 % (21-51); MDiff Complete? YES; Mean Corpuscular HGB CONC 34.6 g/dL (32.0-36.0); Mean Corpuscular Hemoglobin 35.3 pg (27.0-31.0); Mean Platelet Volume 7.2 fL (7.4-10.4); Metamyelocyte 2 % (0-0); Monocytes 11 % (0-10); Neutrophil 44 % (42-75); Platelet Count 180 thou/uL (130-400); RBC Distribution Width 12.7 % (11.5-14.5); Red Blood Cell (RBC) Count 3.28 mill/uL (4.20-5.40); White Blood Cell (WBC) Count 5.1 thou/uL (4.8-10.8)
--- NOTE | 2020-07-03 05:44 | PRG ---
DATE OF SERVICE: 07/02/2020 SUBJECTIVE: Ms. García notes she is still having loose stool to the point where it is making her bottom raw. She notes 5 or 6 watery stools today, the nurses confirmed this. She states she does not have much appetite, but she has been trying to take p.o. She has no abdominal pain. OBJECTIVE: VITAL SIGNS: Temperature 97. She has been afebrile since admission. Pulse 73, blood pressure 112/53. GENERAL: She is resting in bed. NEUROLOGIC: She is alert and oriented, but she still does search for words and ways to describe things. ABDOMEN: Soft and nontender. Bowel sounds are positive. LUNGS: Clear. HEART: Regular rhythm. LABORATORY DATA: White count 5.1, hemoglobin 11.2, MCV 101, platelet count 196. Sodium 141, potassium has come up from 2.5 to 3.6. BUN and creatinine are 4 and 0.6. TSH 1.055. ASSESSMENT: 1. Chronic diarrhea with CT showing some acute colitis change in the sigmoid colon. Etiology is unclear. The length of her symptoms is unclear as she definitely was not complaining of diarrhea in her visit to our office with Dr. Martines a month ago, but here, she notes this has been a problem that has gone on for 6 months. 2. There may be a component of dementia. 3. Macrocytosis. RECOMMENDATIONS: 1. Check B12, folate, thiamine. 2. Celiac panel. 3. Plan for upper and lower endoscopy tomorrow. Risks, benefits, and possible complications of procedure were discussed with the patient. She wished to proceed. She denies ever having colonoscopy in the past. With her stool studies being nondiagnostic, I think we are going to need the colonoscopy to guide our treatment. I have called the patient's son, but has gone to voicemail twice. Job ID: [id number]
[2020-07-03] MEDS ORDERED: PROPOFOL 200 MG/20 ML VIAL ONE (09:42)
[2020-07-03] MEDS ORDERED: PHENYLEPHRINE-NS 100 MCG/ML 10 ML SYRINGE ONE (09:42)
[2020-07-03] MEDS ORDERED: Lidocaine 1% PF 5 ML VIAL ONE (09:42)
[2020-07-03] MEDS ORDERED: Ondansetron HCl/PF 4 MG/2 ML Vial IVP PRN (10:42)
[2020-07-03] MEDS ORDERED: Promethazine HCl 25 MG/ML VIAL IM PRN (10:42)
[2020-07-03] MEDS ORDERED: Promethazine HCl 25 MG/ML VIAL SLOW IVP PRN (10:42)
--- NOTE | 2020-07-03 11:46 | OP ---
DATE OF PROCEDURE: 07/03/2020 PREPROCEDURE DIAGNOSIS: Chronic diarrhea of unclear etiology. PROCEDURES PERFORMED: Esophagogastroduodenoscopy with biopsy and colonoscopy with biopsy. POSTPROCEDURE DIAGNOSES: 1. EGD normal. Random biopsies were taken from the second portion of duodenum to evaluate for celiac. 2. Colonoscopy notable for slight loss of vascular pattern throughout the colon. No overt colitis was seen. There was mild edema in the rectum. Random biopsies were taken throughout the colon and then separate random biopsies were taken from the rectum. RECOMMENDATIONS: Lactose-free diet, Lomotil p.r.n., check fecal fat. ANESTHESIA: TIVA. DESCRIPTION OF PROCEDURE: After the patient was informed of the risks, benefits, and possible complications of endoscopy including perforation, reaction to medication, and aspiration, informed consent was obtained. The patient was brought to endoscopy suite, where she was sedated in gradual fashion. Once she was comfortable, a bite block was placed in the incisural orifice. The endoscope was advanced through the bite block into esophagus, stomach, and into the second and third portions of the duodenum and slowly removed. The duodenum was normal. Random biopsies were taken in the second and third portions to evaluate for infiltrative disorders or diarrhea disorders. The bulb was normal. The stomach was normal in forward and retroflexed views. The esophagus was normal. The scope was removed. The patient was turned to the room and a rectal examination was performed. The endoscope was advanced to the anal canal through the colon to the cecum, and into the terminal ileum, which was normal. The colonoscope was then slowly withdrawn. No polyps were seen. There was mild loss of vascular pattern, mild erythema in scattered areas of the colon, but no overt ulcers or erosions to suggest colitis. Retroflexed views in the rectum were normal except for mild edema in the rectal mucosa. Random biopsies were taken in the ascending and descending colon, and in a separate jar, rectal biopsies were taken. The scope was removed. The patient tolerated the procedure well. There were no complications. Job ID: [id number]
[2020-07-03] MEDS: Atorvastatin Calcium 40 MG TAB PO SCH (13:08)
[2020-07-03] MEDS: valACYclovir 500 MG TAB PO SCH ×2 (13:08→21:48)
[2020-07-03] MEDS: Aspirin 81 mg Enteric Coated Tablet PO SCH (13:08)
[2020-07-03] MEDS: Metoprolol Tartrate 50 MG TAB PO SCH (13:08)
[2020-07-03] MEDS: Enoxaparin Sodium 40 MG/0.4 ML SYRINGE SC SCH (13:08)
[2020-07-03] MEDS: Pantoprazole 40 MG VIAL IVP SCH (13:09)
[2020-07-03] MEDS: NS 0.9% w/ 40 MEQ KCL 1,000 ML IV SCH (13:10)
--- NOTE | 2020-07-03 14:01 | PDOC.HOSPP ---
- Subjective Encounter Date: 07/03/20 Encounter Time: 13:58 Subjective: Ms. García was seen today in follow-up of chronic diarrhea. She does not have any complaints this afternoon. - Objective Vital Signs & Weight: Vital Signs (12 hours) Temp Pulse Resp BP Pulse Ox 07/03/20 11:30 98 F 100 21 H 155/69 H 94 L 07/03/20 11:15 96.0 F L 101 H 17 138/65 94 L 07/03/20 08:00 97.9 F 80 17 142/59 H 96 07/03/20 04:00 98.0 F 83 22 H 147/58 H 96 Weight Admit Weight 100 lb 9 oz Weight 110 lb I&O: 07/02/20 07/03/20 07/04/20 06:59 06:59 06:59 Intake Total 2690 2000 Output Total 300 1300 Balance 2390 700 Result Diagrams: 07/03/20 03:51 07/03/20 03:50 Hospitalist ROS - Medication Medications: Active Medications Generic Name Dose Route Start Last Admin Trade Name Nohemy PRN Reason Stop Dose Admin Alprazolam 0.5 mg 07/01/20 21:00 07/02/20 20:17 Alprazolam 1 Mg Tab PO 0.5 mg HS DORY Administration Aspirin 81 mg 07/01/20 09:00 07/03/20 13:08 Aspirin 81 Mg Enteric Coated Tablet PO 81 mg DAILY DORY Administration Atorvastatin Calcium 40 mg 07/01/20 09:00 07/03/20 13:08 Atorvastatin Calcium 40 Mg Tab PO 40 mg DAILY DORY Administration Enoxaparin Sodium 40 mg 07/01/20 09:00 07/03/20 13:08 Enoxaparin Sodium 40 Mg/0.4 Ml Syringe SC 40 mg 0900 DORY Administration Metronidazole 500 mg/ Device 100 mls @ 100 mls/hr 06/30/20 18:00 07/03/20 13:14 IVPB 100 mls 0200,1000,1800 DORY Administration Ciprofloxacin/Dextrose 400 mg/ 200 mls @ 200 mls/hr 07/01/20 09:00 07/03/20 13:10 Device IVPB Not Given Q12HR DORY Potassium Chloride/Sodium Chloride 1,000 mls @ 75 mls/hr 07/01/20 19:45 07/03/20 13:10 Ns 0.9% W/ 40 Meq Kcl IV 1,000 mls .[id number] DORY Administration Metoprolol Tartrate 50 mg 07/02/20 09:00 07/03/20 13:08 Metoprolol Tartrate 50 Mg Tab PO 50 mg DAILY DORY Administration Montelukast Sodium 10 mg 06/30/20 21:00 07/02/20 20:17 Montelukast Sodium 10 Mg Tablet PO 10 mg HS DORY Administration Pantoprazole Sodium 40 mg 07/02/20 09:00 07/03/20 13:09 Pantoprazole 40 Mg Vial IVP 40 mg DAILY DORY Administration Ranolazine 1,000 mg 06/30/20 21:00 07/03/20 13:07 Ranolazine 500 Mg Tab PO 1,000 mg BID DORY Administration Valacyclovir HCl 500 mg 07/01/20 21:00 07/03/20 13:08 Valacyclovir 500 Mg Tab PO 500 mg BID DORY Administration - Exam Eye: PERRL, anicteric sclera Heart: RRR, no murmur, no gallops, no rubs, normal peripheral pulses Respiratory: CTAB, no wheezes, no rales, no ronchi, normal chest expansion, no tachypnea, normal percussion Gastrointestinal: soft (+ mild diffuse tenderness, no rebound or guarding), non- distended, no palpable masses, no hepatomegaly, no splenomegaly Extremities: no cyanosis, no edema Hosp A/P (1) Chronic diarrhea Code(s): K52.9 - NONINFECTIVE GASTROENTERITIS AND COLITIS, UNSPECIFIED Status: Chronic (2) Diabetes mellitus type 2 in nonobese Code(s): E11.9 - TYPE 2 DIABETES MELLITUS WITHOUT COMPLICATIONS Status: Chronic (3) Chronic kidney disease, stage 3 Code(s): N18.30 - CHRONIC KIDNEY DISEASE, STAGE 3 UNSPECIFIED Status: Chronic (4) CAD (coronary artery disease) Code(s): I25.10 - ATHSCL HEART DISEASE OF [place] CORONARY ARTERY W/O ANG PCTRS Status: Acute - Plan * Chronic diarrhea- she has had stool studies in the past, which has been negative * Colonoscopy findings noted- and awaiting biopsy results * CKD- stable * DM- blood glucose is stable * CAD- stable
[2020-07-03] MEDS: ALPRAZolam 1 MG TAB PO SCH (21:47)
[2020-07-03] MEDS: Montelukast Sodium 10 mg Tablet PO SCH (21:48)
[2020-07-04] MEDS: NS 0.9% w/ 40 MEQ KCL 1,000 ML IV SCH ×2 (01:27→17:45)
[2020-07-04] MEDS: metroNIDAZOLE 500 MG in Premix Bag 1 BAG IVPB SCH ×3 (01:27→17:45)
[2020-07-04] MEDS: valACYclovir 500 MG TAB PO SCH ×2 (08:44→22:39)
[2020-07-04] MEDS: Metoprolol Tartrate 50 MG TAB PO SCH (08:44)
[2020-07-04] MEDS: Atorvastatin Calcium 40 MG TAB PO SCH (08:44)
[2020-07-04] MEDS: Pantoprazole 40 MG VIAL IVP SCH (08:44)
[2020-07-04] MEDS: Aspirin 81 mg Enteric Coated Tablet PO SCH (08:44)
[2020-07-04] MEDS: Enoxaparin Sodium 40 MG/0.4 ML SYRINGE SC SCH (08:44)
--- NOTE | 2020-07-04 11:59 | PRG ---
DATE OF SERVICE: 07/04/2020 SUBJECTIVE: Ms. García notes she still had a little bit of loose stool with urgency, but is starting to form some pieces. OBJECTIVE: GENERAL: She is alert and little bit more oriented. ABDOMEN: Soft and nontender. LUNGS: Clear. EXTREMITIES: No clubbing, cyanosis, or edema. VITAL SIGNS: Temperature 97.5, pulse 107, blood pressure 137/81. LABORATORY DATA: C diff negative. Stool lactoferrin positive. Campylobacter negative. Enterotoxigenic E coli negative. ASSESSMENT: Diarrheal illness of unclear etiology. Endoscopically, there is no overt evidence of severe colitis or scalloped folds in the duodenum. RECOMMENDATIONS: Continue present antibiotics. Await biopsies. Check stool for fecal fat. Check stool for ova and parasites. Trial of Colestid. Job ID: [id number]
[2020-07-04 12:33] VITALS: BMI 20.4
--- NOTE | 2020-07-04 14:06 | PDOC.HOSPP ---
- Subjective Encounter Date: 07/04/20 Encounter Time: 14:04 Subjective: Ms. García was seen today in follow-up of chronic diarrhea. She says she had a little abdominal cramping, but no susana diarrhea today. - Objective Vital Signs & Weight: Vital Signs (12 hours) Temp Pulse Resp BP Pulse Ox 07/04/20 08:00 97 07/04/20 07:58 97.5 F L 107 H 17 137/81 97 Weight Admit Weight 100 lb 9 oz Weight 108 lb I&O: 07/03/20 07/04/20 07/05/20 06:59 06:59 06:59 Intake Total 19990 Output Total 1300 1350 Balance 700 320 Result Diagrams: 07/03/20 03:51 07/03/20 03:50 Hospitalist ROS - Medication Medications: Active Medications Generic Name Dose Route Start Last Admin Trade Name Freq PRN Reason Stop Dose Admin Acetaminophen 650 mg 06/30/20 17:51 07/03/20 21:47 Acetaminophen 325 Mg Tab PO 650 mg Q6H PRN Administration Headache/Fever/Mild Pain (1-3) Alprazolam 0.5 mg 07/01/20 21:00 07/03/20 21:47 Alprazolam 1 Mg Tab PO 0.5 mg HS DORY Administration Aspirin 81 mg 07/01/20 09:00 07/04/20 08:44 Aspirin 81 Mg Enteric Coated Tablet PO 81 mg DAILY DORY Administration Atorvastatin Calcium 40 mg 07/01/20 09:00 07/04/20 08:44 Atorvastatin Calcium 40 Mg Tab PO 40 mg DAILY DORY Administration Enoxaparin Sodium 40 mg 07/01/20 09:00 07/04/20 08:44 Enoxaparin Sodium 40 Mg/0.4 Ml Syringe SC 40 mg 0900 DORY Administration Metronidazole 500 mg/ Device 100 mls @ 100 mls/hr 06/30/20 18:00 07/04/20 11:13 IVPB 100 mls 0200,1000,1800 DORY Administration Ciprofloxacin/Dextrose 400 mg/ 200 mls @ 200 mls/hr 07/01/20 09:00 07/04/20 08:44 Device IVPB 200 mls Q12HR DORY Administration Potassium Chloride/Sodium Chloride 1,000 mls @ 75 mls/hr 07/01/20 19:45 07/04/20 01:27 Ns 0.9% W/ 40 Meq Kcl IV 1,000 mls .[id number] DORY Administration Metoprolol Tartrate 50 mg 07/02/20 09:00 07/04/20 08:44 Metoprolol Tartrate 50 Mg Tab PO 50 mg DAILY DORY Administration Montelukast Sodium 10 mg 06/30/20 21:00 07/03/20 21:48 Montelukast Sodium 10 Mg Tablet PO 10 mg HS DORY Administration Pantoprazole Sodium 40 mg 07/02/20 09:00 07/04/20 08:44 Pantoprazole 40 Mg Vial IVP 40 mg DAILY DORY Administration Ranolazine 1,000 mg 06/30/20 21:00 07/04/20 08:44 Ranolazine 500 Mg Tab PO 1,000 mg BID DORY Administration Valacyclovir HCl 500 mg 07/01/20 21:00 07/04/20 08:44 Valacyclovir 500 Mg Tab PO 500 mg BID DORY Administration - Exam Eye: PERRL, anicteric sclera Heart: RRR, no murmur, no gallops, no rubs, normal peripheral pulses Respiratory: CTAB, no wheezes, no rales, no ronchi, normal chest expansion Gastrointestinal: soft, non-tender, non-distended, normal bowel sounds, no palp able masses, no hepatomegaly Extremities: no cyanosis, no edema Hosp A/P (1) Chronic diarrhea Code(s): K52.9 - NONINFECTIVE GASTROENTERITIS AND COLITIS, UNSPECIFIED Status: Chronic (2) Diabetes mellitus type 2 in nonobese Code(s): E11.9 - TYPE 2 DIABETES MELLITUS WITHOUT COMPLICATIONS Status: Chronic (3) Chronic kidney disease, stage 3 Code(s): N18.30 - CHRONIC KIDNEY DISEASE, STAGE 3 UNSPECIFIED Status: Chronic (4) CAD (coronary artery disease) Code(s): I25.10 - ATHSCL HEART DISEASE OF [place] CORONARY ARTERY W/O ANG PCTRS Status: Acute - Plan * Chronic diarrhea- GI recommendations noted. Stool will be collected for fecal fat, and O&P. * Trial of Colestipol * Colonoscopy findings noted- and awaiting biopsy results * Consider discontinuing antibiotics * CKD- stable * DM- blood glucose is stable * CAD- stable
[2020-07-04 17:34] LABS: EliA Celiac New Method **** NEW METHOD ****; t-Transglutaminase (tTG) IgA Less than 0.1 EliAU/mL (<7 Negative)
[2020-07-04] MEDS: ALPRAZolam 1 MG TAB PO SCH (22:35)
[2020-07-04] MEDS: Montelukast Sodium 10 mg Tablet PO SCH ×2 (22:39→22:42)
[2020-07-05] MEDS: metroNIDAZOLE 500 MG in Premix Bag 1 BAG IVPB SCH ×2 (03:01→09:04)
[2020-07-05] MEDS: NS 0.9% w/ 40 MEQ KCL 1,000 ML IV SCH (08:34)
[2020-07-05] MEDS: Metoprolol Tartrate 50 MG TAB PO SCH (08:39)
[2020-07-05] MEDS: Atorvastatin Calcium 40 MG TAB PO SCH (08:39)
[2020-07-05] MEDS: valACYclovir 500 MG TAB PO SCH (08:40)
[2020-07-05] MEDS: Enoxaparin Sodium 40 MG/0.4 ML SYRINGE SC SCH (08:40)
[2020-07-05] MEDS: Aspirin 81 mg Enteric Coated Tablet PO SCH (08:40)
[2020-07-05] MEDS ORDERED: Fluticasone Propionate Nasal Spray 16 gm Bottle NASAL SCH (09:00)
[2020-07-05 09:40] LABS: #Eosinphils 0.1 thou/uL (0.0-0.7); #Lymphocytes 0.8 thou/uL (1.20-3.40); #Monocytes 0.5 thou/uL (0.11-0.59); #Neutrophils 3.3 thou/uL (1.40-6.50); %Basophils 0.5 % (0.0-1.0); %Lymphocytes 16.5 % (21.0-51.0); %Monocytes 11.3 % (0.0-10.0); %Neutrophils 69.7 % (42.0-75.0); Hemoglobin 12.6 g/dL (12.0-16.0); Mean Corpuscular HGB CONC 33.2 g/dL (32.0-36.0); Mean Corpuscular Hemoglobin 34.6 pg (27.0-31.0); Mean Platelet Volume 7.9 fL (7.4-10.4); Platelet Count 149 thou/uL (130-400); RBC Distribution Width 13.1 % (11.5-14.5); Red Blood Cell (RBC) Count 3.63 mill/uL (4.20-5.40); White Blood Cell (WBC) Count 4.8 thou/uL (4.8-10.8)
[2020-07-05 10:04] LABS: Anion Gap 14 mmol/L (10-20); BUN (Urea Nitrogen) Less than 4 mg/dL (9.8-20.1); Calc. Creatinine Clearance 50 mL/min (70-130); Calcium 7.9 mg/dL (7.8-10.44); Carbon Dioxide 19 mmol/L (23-31); Chloride 111 mmol/L (98-107); Estimated GFR-MDRD 72; Glucose 165 mg/dL (83-110); Potassium 4.6 mmol/L (3.5-5.1); Sodium 139 mmol/L (136-145)
[2020-07-05] MEDS ORDERED: Diphenoxylate HCl/Atropine Tablet PO PRN (11:36)
[2020-07-05 11:39] VITALS: BP 138/63; TEMP 98
--- NOTE | 2020-07-05 12:34 | PRG ---
DATE OF SERVICE: 07/05/2020 SUBJECTIVE: Ms. García is having some frequent stools still, but only two this morning, one was watery and one was soft. OBJECTIVE: VITAL SIGNS: Temperature is 99 max, blood pressure is 130/63. ABDOMEN: Soft, nontender. LABORATORY DATA: Stool fecal lactoferrin was positive, culture negative, rapid parasite screen negative, celiac testing negative. Macrocytosis with normal B12 and folate. RECOMMENDATIONS: 1. Continue Colestid. 2. Await fecal fat in the stool for signs of any pancreatic insufficiency. Continue Colestid, add Imodium p.r.n. We would stop antibiotics at this time and place on a probiotic and a lactose-free diet. Job ID: [id number]
--- NOTE | 2020-07-05 12:59 | PDOC.HOSPP ---
- Subjective Encounter Date: 07/05/20 Encounter Time: 12:58 Subjective: Ms. García was seen today in follow-up of chronic diarrhea. She notes the the stools are a bit firmer. She has had 2 loose stools since this morning, which is an improvement over the past few days. By this time she usually would have 5 stools. She has been eating well since last night. - Objective Vital Signs & Weight: Vital Signs (12 hours) Temp Pulse Resp BP Pulse Ox 07/05/20 11:27 98 F 79 16 138/63 97 07/05/20 08:33 99.0 F 85 18 130/63 97 07/05/20 03:06 97.9 F 80 16 121/56 L 97 Weight Admit Weight 100 lb 9 oz Weight 117 lb 1 oz I&O: 07/04/20 07/05/20 07/06/20 06:59 06:59 06:59 Intake Total 1670 2685 Output Total 1350 1550 Balance 320 1135 Result Diagrams: 07/05/20 09:31 07/05/20 09:31 Hospitalist ROS - Medication Medications: Active Medications Generic Name Dose Route Start Last Admin Trade Name Freq PRN Reason Stop Dose Admin Acetaminophen 650 mg 06/30/20 17:51 07/03/20 21:47 Acetaminophen 325 Mg Tab PO 650 mg Q6H PRN Administration Headache/Fever/Mild Pain (1-3) Alprazolam 0.5 mg 07/01/20 21:00 07/04/20 22:35 Alprazolam 1 Mg Tab PO 0.5 mg HS DORY Administration Aspirin 81 mg 07/01/20 09:00 07/05/20 08:40 Aspirin 81 Mg Enteric Coated Tablet PO 81 mg DAILY DORY Administration Atorvastatin Calcium 40 mg 07/01/20 09:00 07/05/20 08:39 Atorvastatin Calcium 40 Mg Tab PO 40 mg DAILY DORY Administration Colestipol HCl 1 gm 07/04/20 21:00 07/04/20 22:39 Colestipol Hcl 1 Gm Tab PO 1 gm HS DORY Administration Enoxaparin Sodium 40 mg 07/01/20 09:00 07/05/20 08:40 Enoxaparin Sodium 40 Mg/0.4 Ml Syringe SC 40 mg 0900 DORY Administration Potassium Chloride/Sodium Chloride 1,000 mls @ 75 mls/hr 07/01/20 19:45 07/05/20 08:34 Ns 0.9% W/ 40 Meq Kcl IV 1,000 mls .[id number] DORY Administration Metoprolol Tartrate 50 mg 07/02/20 09:00 07/05/20 08:39 Metoprolol Tartrate 50 Mg Tab PO 50 mg DAILY DORY Administration Montelukast Sodium 10 mg 06/30/20 21:00 07/04/20 22:42 Montelukast Sodium 10 Mg Tablet PO Not Given HS DORY Pantoprazole Sodium 40 mg 07/05/20 09:00 07/05/20 08:39 Pantoprazole 40 Mg Tab PO 40 mg DAILY DORY Administration Ranolazine 1,000 mg 06/30/20 21:00 07/05/20 08:39 Ranolazine 500 Mg Tab PO 1,000 mg BID DORY Administration Valacyclovir HCl 500 mg 07/01/20 21:00 07/05/20 08:40 Valacyclovir 500 Mg Tab PO 500 mg BID DORY Administration - Exam Eye: PERRL, anicteric sclera Heart: RRR, no murmur, no gallops, no rubs, normal peripheral pulses Respiratory: CTAB, no wheezes, no rales, no ronchi, normal chest expansion, no tachypnea Gastrointestinal: soft, non-tender, non-distended, normal bowel sounds, no palpable masses, no hepatomegaly Extremities: no cyanosis, no edema Hosp A/P (1) Chronic diarrhea Code(s): K52.9 - NONINFECTIVE GASTROENTERITIS AND COLITIS, UNSPECIFIED Status: Chronic (2) Diabetes mellitus type 2 in nonobese Code(s): E11.9 - TYPE 2 DIABETES MELLITUS WITHOUT COMPLICATIONS Status: Chronic (3) Chronic kidney disease, stage 3 Code(s): N18.30 - CHRONIC KIDNEY DISEASE, STAGE 3 UNSPECIFIED Status: Chronic (4) CAD (coronary artery disease) Code(s): I25.10 - ATHSCL HEART DISEASE OF [place] CORONARY ARTERY W/O ANG PCTRS Status: Acute - Plan * Chronic diarrhea-improved * Spot fecal fat has been re-ordered * Continue with a trial of Colestipol * Colonoscopy findings noted- and awaiting biopsy results * Antibiotics have been discontinued * CKD- stable * DM- blood glucose is stable * CAD- stable * Discussed with Dr. Mccurdy. Will discharge her back to [facility] today, where she is a permanent resident, and continue work-up and follow-up as an outpatient
--- NOTE | 2020-07-05 18:06 | PDOC.DS.DS ---
Provider - Provider Date of Admission: 06/30/20 18:17 Date of Discharge: 07/05/20 Admitting Provider: Debbie Rodriguez MD Consultations: Gastroentrology Primary Care Physician: Mikhail Varghese MD Course - Hospital Course Hospital Course: Ms. García is a 79-year-old female that has a history of coronary artery disease hypertension diabetes mellitus and chronic kidney disease stage III. She presented to the emergency room with complaints of abdominal pain and diarrhea. She has had diarrhea off and on for over 4 months. She got to the point where she was tired of it and wanted to know "what is going on". She was admitted to the hospital. Gastroenterology was consulted. The patient underwent upper and lower endoscopy. The EGD was essentially normal. Colonoscopy was done and demonstrated some loss of vascular pattern throughout the colon. Otherwise no significant abnormalities were noted. Random biopsies were taken. The patient had a CT scan of the abdomen and pelvis. This demonstrated evidence of some mucosal thickening consistent with colitis. Renal cyst was also noted on the left kidney but was stable. The patient also had stool studies done including Clostridium Dificile and stool for ova and parasites. These test were negative. She had already had screening for celiac disease which was negative. The patient was placed on a trial of colestipol to see if this could be diarrhea related to bile acid. Stool studies were also taken for fecal fat which were pending at the time of discharge. These may also need to be repeated in the outpatient setting as well. The patient sees Dr. Ольга Martines on a regular basis and it is felt that the work-up can be completed in the outpatient setting. At the time of discharge the patient was tolerating an oral diet much better than before. Her stools were beginning to form. And the number and volume of the stool was decreasing. Thus the patient was discharged back to [facility] which is her home. Pertinent Studies: CT scan of the abdomen EGD and Colonoscopy Resuscitation Status: 06/30/20 17:51 Resuscitation Status Routine Resuscitation Status: FULL: Full Resuscitation - Labs Lab Results: 07/05/20 09:31 07/05/20 09:31 Abnormal Lab Results - Last 48 hrs 07/05/20 09:31: Chloride 111 H, Carbon Dioxide 19 L, BUN Less than 4 L 07/05/20 09:31: RBC 3.63 L, MCV 104.0 H, MCH 34.6 H, Lymphocytes % 16.5 L, Monocytes % 11.3 H, Lymphocytes # 0.8 L Microbiology - Entire Visit 07/04/20 19:10 Stool - Formed Rapid Parasite Screen - Final 07/01/20 18:33 Stool Stool Culture - Final 07/01/20 18:33 Stool Escherichia coli 0157 Culture - Final 07/01/20 18:33 Stool C. difficile GDH Antigen & Toxins - Final 07/01/20 18:33 Stool Stool Lactoferrin - Final 07/01/20 18:33 Stool Campylobacter Antigen Assay - Final 07/01/20 18:33 Stool Shiga Toxin Test - Final - Physical Exam Vitals: Vital Signs (12 hours) Temp Pulse Resp BP Pulse Ox 07/05/20 11:27 98 F 79 16 138/63 97 07/05/20 08:33 99.0 F 85 18 130/63 97 Weight Admit Weight 100 lb 9 oz Weight 117 lb 1 oz Physical Exam: The patient was seen and examined on the day of discharge. Problem - Problem (1) Chronic diarrhea Code(s): K52.9 - NONINFECTIVE GASTROENTERITIS AND COLITIS, UNSPECIFIED Status: Chronic (2) Diabetes mellitus type 2 in nonobese Code(s): E11.9 - TYPE 2 DIABETES MELLITUS WITHOUT COMPLICATIONS Status: Chronic (3) Chronic kidney disease, stage 3 Code(s): N18.30 - CHRONIC KIDNEY DISEASE, STAGE 3 UNSPECIFIED Status: Chronic (4) CAD (coronary artery disease) Code(s): I25.10 - ATHSCL HEART DISEASE OF [place] CORONARY ARTERY W/O ANG PCTRS Status: Acute Plan - Discharge Medications Prescriptions: Colestipol HCl [Colestid] 1 gm PO HS #30 tab Saccharomyces boulardii [Florastor] 250 mg PO DAILY #30 cap Home Medications: Medication Instructions Recorded Confirmed Type ALPRAZolam [Xanax] 1 tab PO BID 02/16/20 06/30/20 History Aspirin [Aspirin EC] 81 mg PO DAILY 02/16/20 06/30/20 History Atorvastatin Calcium [Lipitor] 40 mg PO DAILY 02/16/20 06/30/20 History Esomeprazole Magnesium 40 mg PO DAILY 02/16/20 06/30/20 History Ferrous Sulfate [Feosol] 325 mg PO DAILY 02/16/20 06/30/20 History Fexofenadine HCl [Allergy Relief] 180 mg PO DAILY 02/16/20 06/30/20 History Fluticasone/Salmeterol [Advair HFA 1 puff INH BID 02/16/20 06/30/20 History 115/21 Inhaler] Ipratropium/Albuterol Sulfate 1 puff INH QID PRN 02/16/20 06/30/20 History [Combivent Respimat] Metoprolol Tartrate [Lopressor] 50 mg PO DAILY 02/16/20 06/30/20 History Montelukast Sodium [Singulair] 10 mg PO DAILY 02/16/20 06/30/20 History Ranolazine [Ranexa] 1,000 mg PO BID 02/16/20 06/30/20 History Ticagrelor [Brilinta] 90 mg PO BID 02/16/20 06/30/20 History metFORMIN [Glucophage] 500 mg PO BID-WM 02/16/20 06/30/20 History valACYclovir HCl [Valtrex] 0.5 tab PO BID 02/16/20 06/30/20 History HYDROcodone/Acetaminophen [[place] 1 each PO BID PRN 07/01/20 07/01/20 History 10-325 Tablet] Colestipol HCl [Colestid] 1 gm PO HS #30 tab 07/05/20 Rx Saccharomyces boulardii [Florastor] 250 mg PO DAILY #30 cap 07/05/20 Rx Allergies: fenofibrate [From Tricor] Allergy (Verified 06/30/20 23:06) ibandronate sodium [From Boniva] Allergy (Verified 06/30/20 23:06) lisinopril Allergy (Verified 06/30/20 23:06) morphine Allergy (Verified 06/30/20 23:06) NSAIDS (Non-Steroidal Anti-Inflamma Allergy (Verified 06/30/20 23:06) Sulfa (Sulfonamide Antibiotics) Allergy (Verified 06/30/20 23:06) - Discharge Instructions Discharge Instructions:: Follow-up with Dr. Martines in 1-2 week Follow-up results of stool studies, and fecal fat results Activity:: Activity as Tolerated Nourishment:: Heart Healthy Diet - Follow up Plan Referrals: Greg Mccurdy MD [Active] - (Follow up with Dr. Mccurdy about your stool studies and to further work up your stool problems.) Mikhail Varghese MD [Primary Care Provider] - 7 Days (Please call office to schedule a follow up appointment.) Disposition: HOME Quality - Care Measures CORE MEASURES:: N/A
[2020-07-06] MEDS ORDERED: Lactinex Tablet PO SCH (09:00)
--- NOTE | 2020-07-07 04:18 | PQF ---
Dear : Td Felipe Date : 07/07/2020 Please exercise your independent, professional judgment in responding to the clarification form. Clinical indicators are provided on the bottom of this form for your review Can you please further clarify the diagnosis of the patient? [ X] Associated Diagnosis: Type 2 [place] due to demand ischemia [ ] Not clinically significant laboratory findings [ ] Other diagnosis, please specify [ ] Unable to determine Physician Signature: Date/Time: For continuity of documentation, please document condition throughout progress notes and discharge summary. Thank You. To be completed by CDI/Coding staff for physician review: Present Clinical Indicators - Signs / Symptoms / Labs Results and Location in Medical Record [ x ] Troponin: 0.080H, 0.061H, 0.065H, 0.069H Laboratory [ x ] ST Segment normal. Nonspecific EKG ED Provider pg.4 [ x ] Generalized weakness ED Provider pg.5 [ x ] Indeterminate Troponin ED Provider pg.5 [ x ] Mildly elevated troponins, could be demand related H and P pg.3 Present Risk Factors Results and Location in Medical Record [ x ] 79 years old H and P pg.1 [ x ] CAD H and P pg.1 [ x ] HTN H and P pg.1 [ x ] DM H and P pg.1 [ x ] CKD3 H and P pg.1 Present Treatments Results and Location in Medical Record [ x ] EKG ED Provider pg.4 [ x ] Troponin Monitoring Laboratory [ x ] IV Fluids OCT [ x ] Aspirin 325mg PO OCT [ x ] Brilinta 90mg Oral NOV 04 [ x ] Lovenox 40mg Subcu NOV 04 CDS/Wagon Person Signature: Humberto Atkins Phone #: [phone] Date 07/07/2020 This is a permanent part of the Medical Record [facility]
[2020-07-07 15:15] LABS: Norovirus GI Negative (Negative); Norovirus GII Negative (Negative)
[2020-07-07 16:10] LABS: Neutral Fats And/Or Soaps Normal (.)
== END 2020-07-05 15:09 | disposition home or self-care (01) | DRG 391 ==
LOC: ERS 14:00 → 2NO 18:17
PROVIDERS: ADMIT Internal Medicine; ATTEND Hospitalist
PROC: 0DB98ZX Excision of Duodenum, Via Natural or Artificial Opening Endoscopic, Diagnostic (ICD-10-PCS; principal; 2020-07-03)
PROC: 0DBK8ZX Excision of Ascending Colon, Via Natural or Artificial Opening Endoscopic, Diagnostic (ICD-10-PCS; 2020-07-03)
PROC: 0DBP8ZX Excision of Rectum, Via Natural or Artificial Opening Endoscopic, Diagnostic (ICD-10-PCS; 2020-07-03)
PROC: 0DBM8ZX Excision of Descending Colon, Via Natural or Artificial Opening Endoscopic, Diagnostic (ICD-10-PCS; 2020-07-03)
DX: K52.9 Noninfective gastroenteritis and colitis, unspecified (principal); I21.A1 Myocardial infarction type 2; N17.9 Acute kidney failure, unspecified; Z20.828 Contact with and (suspected) exposure to other viral communicable diseases; I25.10 Atherosclerotic heart disease of native coronary artery without angina pectoris; I12.9 Hypertensive chronic kidney disease with stage 1 through stage 4 chronic kidney disease, or unspecified chronic kidney disease; N18.30 Chronic kidney disease, stage 3 unspecified; E11.22 Type 2 diabetes mellitus with diabetic chronic kidney disease; K21.9 Gastro-esophageal reflux disease without esophagitis; E87.6 Hypokalemia; D50.9 Iron deficiency anemia, unspecified; F41.1 Generalized anxiety disorder; G89.4 Chronic pain syndrome; N28.1 Cyst of kidney, acquired; R33.9 Retention of urine, unspecified; D75.89 Other specified diseases of blood and blood-forming organs; L89.151 Pressure ulcer of sacral region, stage 1; Z95.1 Presence of aortocoronary bypass graft; Z88.2 Allergy status to sulfonamides; Z88.6 Allergy status to analgesic agent; Z88.8 Allergy status to other drugs, medicaments and biological substances; Z79.82 Long term (current) use of aspirin; Z79.899 Other long term (current) drug therapy; Z79.51 Long term (current) use of inhaled steroids
CPT/HCPCS: 36415; 51701; 74177; 80048; 80053; 81003; 82553; 82607; 82705; 82746; 83516; 83605; 83630; 83690; 83735; 84443; 84484; 85025; 87045; 87046; 87081; 87324; 87328; 87329; 87427; 87449; 87635; 87798; 88305; 93005; 93306; 96365; 96366; 96368; 96375; C9113; J0744; J1650; J2405; J2704; J3475; J3480; Q9967; U0003

== ENCOUNTER 2020-07-18 08:30 | Inpatient (IN) | payer MEDICARE, OTHER, SELFPAY ==
[2020-07-18] MEDS ORDERED: Nitroglycerin 2% Ointment 1 INCH/1 GM Packet ONE (09:01)
[2020-07-18] MEDS ORDERED: Lorazepam 2 MG/ML VIAL ONE (09:01)
[2020-07-18] MEDS ORDERED: Furosemide 40 MG/4 ML VIAL ONE ×2 (09:01→14:15)
[2020-07-18] MEDS ORDERED: Ondansetron PF 4 MG/2 ML Vial ONE (09:05)
[2020-07-18] MEDS ORDERED: Cefepime 2 GM VIAL ONE (09:29)
[2020-07-18] MEDS ORDERED: Azithromycin 500 MG VIAL ONE (09:29)
[2020-07-18 09:34] LABS: Actual Bicarbonate (HCO3a) 23.3 mEq/L (22-28); Analyzer IN Cardio ER; Base Excess (BEa) -4.5 mEq/L (-2.0 to +3.0); CO2 Tension 54.3 mmHg (35.0-45.0); Calcium, Ionized (arterial) 1.14 mmol/L (1.12-1.30); Carboxyhemoglobin (COHb) 0.6 gm% (0.0-3.0); O2 Tension (PaO2), arterial 105.1 mmHg (> 70.0); Potassium - ABG Lab 2.88 mmol/L (3.70-5.30)
[2020-07-18 09:45] LABS: Puncture Site RBA; pH, Arterial 7.25 (7.35-7.45)
[2020-07-18 09:46] LABS: ALV-art Gradient 112.225 mmHg (0-20)
[2020-07-18 09:48] LABS: Bacteria/HPF None Seen HPF (None Seen); Bilirubin Negative (Negative); Blood, Urine Trace (Negative); Clarity Clear (Clear); Glucose, Urine (Dipstick) 70 mg/dL (Negative); Ketone, Urine Negative (Negative); Leukocyte 25 Leu/uL (Negative); Nitrite Negative (Negative); Protein, Urine (Dipstick) 30 mg/dL (Neg-Trace); Specific Gravity, Urine 1.021 (1.002-1.036); Squamous Epithelial 0-3 HPF (0-3); Urobilinogen Normal mg/dL (Less than 2)
[2020-07-18] MEDS ORDERED: Iopamidol-370 76% 500 ML 1 ML ONE (09:51)
[2020-07-18 10:15] LABS: #Basophils 0.1 thou/uL (0.0-0.2); #Eosinphils 0.1 thou/uL (0.0-0.7); #Lymphocytes 1.1 thou/uL (1.20-3.40); #Monocytes 0.8 thou/uL (0.11-0.59); #Neutrophils 9.7 thou/uL (1.40-6.50); %Basophils 0.4 % (0.0-1.0); %Eosinophils 1.1 % (0.0-10.0); %Lymphocytes 9.1 % (21.0-51.0); %Monocytes 7.1 % (0.0-10.0); %Neutrophils 82.2 % (42.0-75.0); Hemoglobin 13.7 g/dL (12.0-16.0); Mean Corpuscular HGB CONC 33.3 g/dL (32.0-36.0); Mean Corpuscular Hemoglobin 34.8 pg (27.0-31.0); Mean Platelet Volume 6.9 fL (7.4-10.4); Platelet Count 263 thou/uL (130-400); RBC Distribution Width 13.4 % (11.5-14.5); Red Blood Cell (RBC) Count 3.93 mill/uL (4.20-5.40); White Blood Cell (WBC) Count 11.8 thou/uL (4.8-10.8)
--- NOTE | 2020-07-18 10:15 | RAD ---
Chest one view HISTORY: Dyspnea. COMPARISON: 11/03/2019. FINDINGS: Cardiac silhouette is magnified by projection. Pulmonary vasculature upper limits of normal . Lungs remain hyperinflated with the exception of patchy predominantly peripheral infiltrate at the ri ght lung base and subtle possible groundglass infiltrate at the left lung base. Mediastinum is slightly shifted rightward with patient rotation. Postoperative changes and coronary a rtery stent evident. No evidence of pneumothorax. IMPRESSION : Bibasilar infiltrates, as often seen with COVID pneumonitis.
[2020-07-18 10:25] LABS: PTT 23.4 sec (22.9-36.1); Prothrombin Time 12.8 sec (12.0-14.7)
[2020-07-18 10:26] LABS: D-Dimer Test 2.47 *mcg/mL (0.27-0.43)
[2020-07-18 10:36] LABS: ALT (SGPT) 7 U/L (8-55); AST (SGOT) 13 U/L (5-34); Albumin 3.7 g/dL (3.4-4.8); Alkaline Phosphatase 64 U/L (40-110); Anion Gap 17 mmol/L (10-20); BUN (Urea Nitrogen) 17 mg/dL (9.8-20.1); Bilirubin, Total 0.5 mg/dL (0.2-1.2); Calc. Creatinine Clearance 0 mL/min (70-130); Calcium 8.2 mg/dL (7.8-10.44); Carbon Dioxide 22 mmol/L (23-31); Chloride 105 mmol/L (98-107); Estimated GFR-MDRD 67; Globulin 2.7 g/dL (2.4-3.5); Glucose 329 mg/dL (83-110); Magnesium 1.4 mg/dL (1.6-2.6); Protein, Total 6.4 g/dL (6.0-8.3); Sodium 141 mmol/L (136-145)
[2020-07-18 10:39] LABS: Potassium 2.9 mmol/L (3.5-5.1)
[2020-07-18] MEDS ORDERED: Dexamethasone 4 mg/ml Vial ONE (10:52)
[2020-07-18] MEDS ORDERED: Acetaminophen 500 MG TAB ONE (10:52)
[2020-07-18] MEDS ORDERED: Potassium Chloride 20 MEQ TAB ONE ×2 (10:55→17:52)
[2020-07-18 10:59] LABS: CKMB 1.1 ng/mL (0-6.6)
[2020-07-18 11:06] LABS: SARS-CoV-2 NAA Rapid Test Not Detected (NotDetected)
[2020-07-18 12:08] LABS: Lactic Acid 2.6 mmol/L (0.5-2.2)
--- NOTE | 2020-07-18 12:55 | CT ---
EXAM: CT angiogram of the chest including 3-D rendering: HISTORY: Dyspnea anxiety chronic kidney disease asthma COMPARISON: None FINDINGS: There is adequate opacification of the pulmonary arteries. No evidence for aortic aneurysm or dissection. No convincing CT evidence for acute pulmonary embolism. Extensive bilateral hazy central and perihilar alveolar parenchymal changes having more the appearanc e of edema rather than atypical pneumonia. No evidence for mediastinal mass or adenopathy. Moderate size bilateral pleural effusions. The visualized upper abdomen is unremarkable. IMPRESSION: Evidence for bilateral pleural effusions and bilateral pulmonary edema, favored over infection includ ing Covid pneumonia.
[2020-07-18] MEDS ORDERED: Magnesium Sulfate 4 GM in Sodium Chloride 0.9% 250 ML 250 ML IVPB SCH (16:45)
[2020-07-18] MEDS ORDERED: Potassium Chloride 20 MEQ TAB PO SCH (17:00)
[2020-07-18 18:11] LABS: Anion Gap 19 mmol/L (10-20); BUN (Urea Nitrogen) 13 mg/dL (9.8-20.1); Calc. Creatinine Clearance 0 mL/min (70-130); Calcium 8.6 mg/dL (7.8-10.44); Carbon Dioxide 23 mmol/L (23-31); Chloride 103 mmol/L (98-107); Estimated GFR-MDRD 77; Glucose 137 mg/dL (83-110); Potassium 4.4 mmol/L (3.5-5.1); Sodium 141 mmol/L (136-145)
[2020-07-18 18:44] LABS: CKMB 2.5 ng/mL (0-6.6)
[2020-07-18] MEDS ORDERED: Enoxaparin Sodium 60 MG/0.6 ML SYRINGE ONE (19:04)
[2020-07-18] MEDS ORDERED: ALPRAZolam 0.25 MG TAB PO PRN (19:18)
[2020-07-18] MEDS ORDERED: HYDROcodone/Acetaminophen 5/325 mg Tablet PO PRN (19:18)
[2020-07-18] MEDS ORDERED: ALPRAZolam 0.5 MG TAB PO PRN (19:36)
--- NOTE | 2020-07-18 19:39 | PDOC.HHP ---
Hospitalist HPI - History of Present Illness Shortness of breath History of Present Illness: Patient is a 79-year-old female with congestive heart failure, coronary artery disease status post CABG, hypertension and diabetes mellitus type 2 presented to the emergency room with above complaints. Over the last 24 hours patient developed gradual worsening shortness of breath at the [facility] for which she was transferred to the emergency room for evaluation. Her O2 saturation at the facility was 85%. She was placed on nonrebreather. The shortness of breath was sudden in onset without any warning symptoms. Shortness of breath was worse with minimal exertion. She also had mild orthopnea. She denies any chest pain, palpitations or syncope. No fever chills or sick contacts reported. She was recently hospitalized at this facility for diarrhea which has resolved. In the emergency room her initial vital signs showed temperature 98, blood pressure 193/44, with pulse rate of 130 and respiration of 28. She was initially placed on known invasive positive pressure ventilation that was trans itioned to high flow due to worsening anxiety. She received IV Lasix along with empiric antibiotics and a nitroglycerin patch was placed. Medical History: Recent fall 10/2019, Recent UTI 10/2019, Type II DM , HTN, CKD Stage [address] Mele Strauss in past, CAD involving coronary bypass graft of [place] heart with angina pectoris x7 stentsfollowed by [facility]. Cartagena, CHF-chronic systolic/diastolic, Iron deficiency anemia, Anxiety, she was on [facility] hospice in fall 2017, MARYANN (generalized anxiety disorder), Mixed hyperlipidemia, Pain in thoracic spine, Chronic pain syndrome, Had failed back injections. Surgical History: CAD x7 stents , RT wrist 2019, EGD w/ Bx and Colonoscopy w/BX 07/03/20. Last cardiac catheterization in February 2018 that showed 1 patent graft. Hospitalization/Major Diagnostic Procedure: CAD x7 stents , Chronic Diarrhea 06/30/20. Family History: Father: family history unknown . Mother: family history unknown . Social History: Non-Smoker, No Alcohol . Lives in Assisted living, , in 1999. Full code. Makes her own decision with the help of her family. ED Course: MEDICATION ADMINISTRATION SUMMARY Shirley Jul 18, 2020 19:38 Drug Name Dose Ordered Route Status Time nitroglycerin transdermal 0.5 inch Transdermal Acknowledged 17:03 07/18/2020 enoxaparin 50 mg Subcutaneous Given 19:05 07/18/2020 furosemide injection 40 mg IV Push Given 14:25 07/18/2020 azithromycin intravenous 500 mg IV Piggy Back Given 12:30 07/18/2020 acetaminophen oral 1000 mg Oral Given 11:35 07/18/2020 dexamethasone sodium phosphate injection 6 mg IV Push Given 11:33 07/18/2020 potassium chloride oral 40 mEq Oral Given 11:33 07/18/2020 *ondansetron 4 mg IV Push Given 10:30 07/18/2020 Levaquin in 5 % dextrose 750 mg IV Piggy Back Given 10:28 07/18/2020 cefepime injection 2 g IV Piggy Back Given 09:51 07/18/2020 furosemide injection 40 mg IV Push Given 09:08 07/18/2020 nitroglycerin transdermal 0.5 inch Topical Given 09:08 07/18/2020 LORazepam injection 0.5 mg IV Push Given 09:07 07/18/2020 Hospitalist ROS - Review of Systems Constitutional: reports: weakness. denies: fever, chills, sweats, malaise, other Respiratory: reports: shortness of breath, SOB with excertion. denies: cough, dry, hemoptysis, pleuritic pain, sputum, wheezing, other Gastrointestinal: denies: nausea, vomiting, abdominal pain, diarrhea, constipation, melena, hematochezia, other Genitourinary: denies: dysuria, frequency, incontinence, hematuria, retention, other All other systems reviewed; all pertinent +/- noted in HPI/Subj - Medication Medications: Allergies fenofibrate [From Tricor] Allergy (Verified 06/30/20 23:06) ibandronate sodium [From Boniva] Allergy (Verified 06/30/20 23:06) lisinopril Allergy (Verified 06/30/20 23:06) morphine Allergy (Verified 06/30/20 23:06) NSAIDS (Non-Steroidal Anti-Inflamma Allergy (Verified 06/30/20 23:06) Sulfa (Sulfonamide Antibiotics) Allergy (Verified 06/30/20 23:06) Medication Instructions Recorded Confirmed Type ALPRAZolam [Xanax] 1 tab PO BID 02/16/20 06/30/20 History Aspirin [Aspirin EC] 81 mg PO DAILY 02/16/20 06/30/20 History Atorvastatin Calcium [Lipitor] 40 mg PO DAILY 02/16/20 06/30/20 History Esomeprazole Magnesium 40 mg PO DAILY 02/16/20 06/30/20 History Ferrous Sulfate [Feosol] 325 mg PO DAILY 02/16/20 06/30/20 History Fexofenadine HCl [Allergy Relief] 180 mg PO DAILY 02/16/20 06/30/20 History Fluticasone/Salmeterol [Advair HFA 1 puff INH BID 02/16/20 06/30/20 History 115/21 Inhaler] Ipratropium/Albuterol Sulfate 1 puff INH QID PRN 02/16/20 06/30/20 History [Combivent Respimat] Metoprolol Tartrate [Lopressor] 50 mg PO DAILY 02/16/20 06/30/20 History Montelukast Sodium [Singulair] 10 mg PO DAILY 02/16/20 06/30/20 History Ranolazine [Ranexa] 1,000 mg PO BID 02/16/20 06/30/20 History Ticagrelor [Brilinta] 90 mg PO BID 02/16/20 06/30/20 History metFORMIN [Glucophage] 500 mg PO BID-WM 02/16/20 06/30/20 History valACYclovir HCl [Valtrex] 0.5 tab PO BID 02/16/20 06/30/20 History HYDROcodone/Acetaminophen [[place] 1 each PO BID PRN 07/01/20 07/01/20 History 10-325 Tablet] Colestipol HCl [Colestid] 1 gm PO HS #30 tab 07/05/20 Rx Saccharomyces boulardii [Florastor] 250 mg PO DAILY #30 cap 07/05/20 Rx - Exam General Appearance: ill appearing General - other findings: Mild to moderate respiratory distress Eye: PERRL, anicteric sclera ENT: normocephalic atraumatic, no oropharyngeal lesions Neck: supple, symmetric, JVD Heart: RRR, no gallops, no rubs Respiratory: no wheezes, rales, rhonchi, tachypneic Gastrointestinal: soft, non-tender, normal bowel sounds, no guarding, no rigidity Extremities: no cyanosis, no clubbing, 2+ LE edema (Rt leg) Neurological: no new deficit Psychiatric: normal affect, A&O x 3 Hospitalist Results - Labs Result Diagrams: 07/19/20 07:43 07/19/20 05:02 Lab results: WBC 11.8 thou/uL (4.8-10.8) H 07/18/20 09:24 Hgb 13.7 g/dL (12.0-16.0) 07/18/20 09:24 Hct 41.0 % (36.0-47.0) 07/18/20 09:24 MCV 104.0 fL (78.0-98.0) H 07/18/20 09:24 Plt Count 263 thou/uL (130-400) 07/18/20 09:24 Neutrophils % 82.2 % (42.0-75.0) H 07/18/20 09:24 ABG pH 7.25 (7.35-7.45) L* 07/18/20 09:35 ABG pCO2 54.3 mmHg (35.0-45.0) H 07/18/20 09:35 ABG pO2 105.1 mmHg (> 70.0) H 07/18/20 09:35 Sodium 141 mmol/L (136-145) 07/18/20 17:31 Potassium 4.4 mmol/L (3.5-5.1) 07/18/20 17:31 Chloride 103 mmol/L (98-107) 07/18/20 17:31 Carbon Dioxide 23 mmol/L (23-31) 07/18/20 17:31 BUN 13 mg/dL (9.8-20.1) 07/18/20 17:31 Creatinine 0.73 mg/dL (0.6-1.1) 07/18/20 17:31 Glucose 137 mg/dL (83-110) H 07/18/20 17:31 Lactic Acid 2.6 mmol/L (0.5-2.2) H 07/18/20 11:44 Calcium 8.6 mg/dL (7.8-10.44) 07/18/20 17:31 Total Bilirubin 0.5 mg/dL (0.2-1.2) 07/18/20 09:24 AST 13 U/L (5-34) 07/18/20 09:24 ALT 7 U/L (8-55) L 07/18/20 09:24 Alkaline Phosphatase 64 U/L (40-110) 07/18/20 09:24 CK-MB (CK-2) 2.5 ng/mL (0-6.6) 07/18/20 17:31 Troponin I 0.320 ng/mL (< 0.028) H* 07/18/20 17:31 B-Natriuretic Peptide 1396.2 pg/mL (0-100) H 07/18/20 09:20 Serum Total Protein 6.4 g/dL (6.0-8.3) 07/18/20 09:24 Albumin 3.7 g/dL (3.4-4.8) 07/18/20 09:24 Urine Ketones Negative mg/dL (Negative) 07/18/20: Urine Blood Trace (Negative) A 07/18/20:20 Urine Nitrite Negative (Negative) 07/18/20 09:20 Ur Leukocyte Esterase 25 You/uL (Negative) A 07/18/20 09:20 Urine RBC 4-6 HPF (0-3) A 07/18/20 09:20 Urine WBC 7-10 HPF (0-3) A 07/18/20 09:20 Ur Squamous Epith Cells 0-3 HPF (0-3) 07/18/20 09:20 Urine Bacteria None Seen HPF (None Seen) 07/18/20 09:20 Abnormal Lab Results - Last 48 hrs 07/18/20 09:01: Lactic Acid 3.7 H 07/18/20 09:20: B-Natriuretic Peptide 1396.2 H 07/18/20 09:20: Urine Protein 30 A, Urine Glucose (UA) 70 A, Urine Blood Trace A, Ur Leukocyte Esterase 25 A, Urine RBC 4-6 A, Urine WBC 7-10 A, Hyaline Casts 11-20 A 07/18/20 09:24: Potassium 2.9 L*, Carbon Dioxide 22 L, Magnesium 1.4 L, ALT 7 L 07/18/20 09:24: D-Dimer 2.47 H 07/18/20 09:24: Troponin I 0.038 H 07/18/20 09:24: WBC 11.8 H, RBC 3.93 L, MCV 104.0 H, MCH 34.8 H, MPV 6.9 L, Neutrophils % 82.2 H, Lymphocytes % 9.1 L, Neutrophils # 9.7 H, Lymphocytes # 1.1 L, Monocytes # 0.8 H 07/18/20 09:35: ABG pH 7.25 L*, ABG pCO2 54.3 H, ABG pO2 105.1 H, ABG Base Excess -4.5 L, ABG Deoxyhemoglobin 3.0 H, A-a O2 Gradient 112.225 H, Potassium 2.88 L 07/18/20 11:44: Lactic Acid 2.6 H Microbiology - Entire Visit 07/18/20 09:20 Nasopharyngeal swab Influenza Types A,B Direct EIA - Final - EKG Interpretation EKG: Sinus tachycardia with left axis deviationreviewed by me - Radiology Interpretation Chest x-ray Status: image reviewed by me Additional Comment: Pulmonary vascular congestion CT scan - chest Status: image reviewed by me Additional Comment: bilateral pleural effusions and bilateral pulmonary edema Hospitalist H&P A/P - Plan Plan: Acute hypoxic and hypercapnic respiratory failure Acute on chronic systolic/diastolic heart failure exacerbation Coronary artery disease status post CABG COPD Hypokalemia/hypomagnesemia Lactic acidosis Hypertension Diabetes mellitus type 2 CKD stage III Chronic iron deficiency anemia Hyperlipidemia GERD Anxiety Chronic pain syndrome Plan: Continue O2 supplementation. Continue high flow oxygen/noninvasive positive pressure ventilation. IMCU admission. Serial troponins. Cardiology consultation. Restart home medications once verified. Nebulizer treatments as needed. Recent echocardiogram showed ejection fraction of 65 to 70% with mild mitral regurgitation and mild tricuspid regurgitation. There was also mild mitral valve prolapse. Monitor labs on a daily basis. Replace magnesium. Insulin sliding scale. Will replace potassium which was 2.9 earlier. The lactic acidosis was probably due to intravascular volume depletion. Full code. Patient understands above plan of care. Patient will require 2 to 3 days for stabilization. Heart failure counseling.
[2020-07-18] MEDS ORDERED: ALPRAZolam 0.5 MG TAB ONE (19:46)
[2020-07-18] MEDS ORDERED: HYDROcodone/Acetaminophen 5/325 mg Tablet ONE (19:46)
[2020-07-18] MEDS ORDERED: Dextrose 5% in Water 1,000 ML IV PRN (20:13)
[2020-07-18] MEDS ORDERED: HumaLOG 300 UNITS/3 ML VIAL SC PRN (20:13)
[2020-07-18] MEDS ORDERED: Dextrose 50% Abboject 50 ML SYRINGE SLOW IVP PRN (20:13)
[2020-07-18] MEDS ORDERED: Ondansetron PF 4 MG/2 ML Vial IVP PRN (20:16)
[2020-07-18] MEDS ORDERED: Acetaminophen 325 MG TAB PO PRN (20:16)
[2020-07-18] MEDS ORDERED: Ondansetron ODT 4 MG TAB PO PRN (20:16)
[2020-07-18] MEDS ORDERED: Calcium Carbonate 500 MG ChewTAB PO PRN (20:16)
[2020-07-18] MEDS: valACYclovir 500 MG TAB PO SCH (21:30)
[2020-07-18] MEDS: TICAGRELOR 90 MG TABLET PO SCH (21:30)
[2020-07-18] MEDS: Potassium Chloride 20 MEQ TAB PO SCH (21:32)
[2020-07-19] MEDS: Potassium Chloride 20 MEQ TAB PO SCH ×3 (01:23→16:28)
[2020-07-19] MEDS: Aspirin 81 mg Enteric Coated Tablet PO SCH ×2 (01:24→20:20)
[2020-07-19] MEDS: ALPRAZolam 0.5 MG TAB PO SCH ×3 (01:25→20:20)
[2020-07-19] MEDS: valACYclovir 500 MG TAB PO SCH ×3 (01:26→20:23)
[2020-07-19] MEDS: HYDROcodone/Acetaminophen 10/325 mg Tablet PO PRN ×3 (05:24→20:27)
[2020-07-19] MEDS: Furosemide 20 MG/2 ML VIAL SLOW IVP SCH ×2 (05:25→14:54)
[2020-07-19] MEDS: Mometasone 100 MCG/Formoterol 5 MCG 120 PUFF INHALER INH SCH ×2 (05:40→17:48)
[2020-07-19 05:42] LABS: ALT (SGPT) Less than 7 U/L (8-55); AST (SGOT) 15 U/L (5-34); Albumin 3.6 g/dL (3.4-4.8); Alkaline Phosphatase 45 U/L (40-110); Anion Gap 16 mmol/L (10-20); BUN (Urea Nitrogen) 11 mg/dL (9.8-20.1); Bilirubin, Total 0.6 mg/dL (0.2-1.2); Calc. Creatinine Clearance 49 mL/min (70-130); Calcium 8.3 mg/dL (7.8-10.44); Carbon Dioxide 25 mmol/L (23-31); Chloride 104 mmol/L (98-107); Estimated GFR-MDRD 79; Globulin 2.4 g/dL (2.4-3.5); Glucose 111 mg/dL (83-110); Lactic Acid 1.4 mmol/L (0.5-2.2); Magnesium 2.6 mg/dL (1.6-2.6); Phosphorus 2.6 mg/dL (2.3-4.7); Potassium 3.8 mmol/L (3.5-5.1); Sodium 141 mmol/L (136-145)
[2020-07-19 05:45] LABS: Troponin I 0.212 ng/mL (< 0.028)
[2020-07-19 07:55] LABS: SARS-CoV-2 MS2 Positive; SARS-CoV-2 N Gene Negative; SARS-CoV-2 S Gene Negative; SARS-CoV-2 by NAA Not Detected (NotDetected); SARS-CoV-2 orf1ab Negative
[2020-07-19 08:06] LABS: Hemoglobin 10.6 g/dL (12.0-16.0)
[2020-07-19 08:28] LABS: #Eosinphils 0.1 thou/uL (0.0-0.7); #Lymphocytes 1.3 thou/uL (1.20-3.40); #Monocytes 0.6 thou/uL (0.11-0.59); #Neutrophils 4.5 thou/uL (1.40-6.50); %Basophils 0.3 % (0.0-1.0); %Eosinophils 0.9 % (0.0-10.0); %Lymphocytes 19.5 % (21.0-51.0); %Monocytes 8.6 % (0.0-10.0); %Neutrophils 70.6 % (42.0-75.0); Mean Corpuscular HGB CONC 33.2 g/dL (32.0-36.0); Mean Platelet Volume 7.1 fL (7.4-10.4); Platelet Count 226 thou/uL (130-400); RBC Distribution Width 13.5 % (11.5-14.5); Red Blood Cell (RBC) Count 3.13 mill/uL (4.20-5.40); White Blood Cell (WBC) Count 6.4 thou/uL (4.8-10.8)
[2020-07-19] MEDS ORDERED: FLU VACC QS2020-21(65YR UP)/PF 240 MCG/0.7 ML SYRINGE IM ONE (09:00)
[2020-07-19] MEDS: Ferrous Sulfate 325 MG TAB PO SCH (09:29)
[2020-07-19] MEDS: Saccharomyces boulardii 250 MG CAP PO SCH (09:31)
[2020-07-19] MEDS: Metoprolol Tartrate 50 MG TAB PO SCH (09:31)
[2020-07-19] MEDS: Loratadine 10 MG TAB PO SCH (09:31)
[2020-07-19] MEDS: Montelukast Sodium 10 mg Tablet PO SCH (09:31)
[2020-07-19] MEDS: TICAGRELOR 90 MG TABLET PO SCH ×2 (09:31→20:23)
[2020-07-19] MEDS: Atorvastatin Calcium 40 MG TAB PO SCH (09:31)
--- NOTE | 2020-07-19 10:20 | ULT ---
EXAM: Right lower extremity venous Doppler US HISTORY: Right lower extremity edema and pain FINDINGS: Grayscale, color-flow, Doppler evaluation, spectral analysis of the right lower extremity venous stru ctures is performed with 2-D imaging. The right common femoral, superficial femoral, popliteal, posterior tibial, proximal greater saphenous and profunda femoral veins are imaged. There is normal luminal compressibility, flow, and augmentation the visualized deep venous structures of the right lower extremity. IMPRESSION: No evidence of a deep vein thrombosis in the right lower extremity.
--- NOTE | 2020-07-19 12:02 | RAD ---
EXAM: Chest PA and lateral: HISTORY: Shortness of breath COMPARISON: 07/18/2020 FINDINGS: Bilateral effusions again noted. No focal infiltrate identified. Heart size upper normal and stable. Coronary stent and postop sternotomy changes again noted. Osseous structures are unremarkable. IMPRESSION: Bilateral effusions again noted.
--- NOTE | 2020-07-19 12:08 | PDOC.HOSPP ---
- Subjective Encounter Date: 07/19/20 Encounter Time: 10:30 Subjective: Patient seen and examined for pulmonary edema/respiratory failure. Shortness of breath improving. Denies any chest pain, palpitations or syncope. - Objective Vital Signs & Weight: Vital Signs (12 hours) Temp Pulse Resp BP Pulse Ox 07/19/20 10:55 98.6 F 71 18 122/59 L 99 07/19/20 09:39 98.8 F 94 18 153/66 H 100 07/19/20 04:00 97.7 F 83 17 146/64 H 98 Weight Admit Weight 107 lb 3.2 oz Weight 107 lb 3.2 oz Result Diagrams: 07/19/20 07:43 07/19/20 05:02 Additional Labs: Accuchecks 07/19/20 07/19/20 07/19/20 10:54 06:29 01:14 POC Glucose 129 H 117 H 122 H Radiology Reviewed by me: Yes (Chest x-rayimprovement with bilateral pleural e ffusion) EKG Reviewed by me: Yes (Sinus rhythm on telemetry) Hospitalist ROS - Review of Systems Respiratory: reports: SOB with excertion. denies: cough, dry, shortness of breath, hemoptysis, pleuritic pain, sputum, wheezing, other Gastrointestinal: denies: nausea, vomiting, abdominal pain, diarrhea, constipation, melena, hematochezia, other Genitourinary: denies: dysuria, frequency, incontinence, hematuria, retention, other - Medication Medications: Active Medications Generic Name Dose Route Start Last Admin Trade Name Freq PRN Reason Stop Dose Admin Hydrocodone Bitart/Acetaminophen 1 tab 07/18/20 20:05 07/19/20 05:24 Hydrocodone/Acetaminophen 10/325 Mg Tablet PO 1 tab Q4H PRN Administration Severe Pain (7-10) Alprazolam 0.5 mg 07/18/20 21:00 07/19/20 09:31 Alprazolam 0.5 Mg Tab PO 0.5 mg BID DORY Administration Aspirin 81 mg 07/18/20 21:00 07/19/20 01:24 Aspirin 81 Mg Enteric Coated Tablet PO 81 mg HS DORY Administration Atorvastatin Calcium 40 mg 07/19/20 09:00 07/19/20 09:31 Atorvastatin Calcium 40 Mg Tab PO 40 mg DAILY DORY Administration Colestipol HCl 1 gm 07/18/20 21:00 07/19/20 01:22 Colestipol Hcl 1 Gm Tab PO 1 gm HS DORY Administration Ferrous Sulfate 325 mg 07/19/20 08:00 07/19/20 09:29 Ferrous Sulfate 325 Mg Tab PO Not Given QAM-WM DORY Furosemide 20 mg 07/19/20 06:00 07/19/20 05:25 Furosemide 20 Mg/2 Ml Vial SLOW IVP 20 mg 0600,1400 DORY Administration Loratadine 10 mg 07/19/20 09:00 07/19/20 09:31 Loratadine 10 Mg Tab PO 10 mg DAILY DORY Administration Metoprolol Tartrate 50 mg 07/19/20 09:00 07/19/20 09:31 Metoprolol Tartrate 50 Mg Tab PO 50 mg DAILY DORY Administration Mometasone Furoate/Formoterol Fumar 1 puff 07/19/20 06:30 07/19/20 05:40 Mometasone 100 Mcg/Formoterol 5 Mcg 120 Puff Inhaler INH 1 puff BID-RT DORY Administration Montelukast Sodium 10 mg 07/19/20 09:00 07/19/20 09:31 Montelukast Sodium 10 Mg Tablet PO 10 mg DAILY DORY Administration Pantoprazole Sodium 40 mg 07/19/20 09:00 07/19/20 09:31 Pantoprazole 40 Mg Tab PO 40 mg DAILY DORY Administration Potassium Chloride 20 meq 07/19/20 08:00 07/19/20 09:31 Potassium Chloride 20 Meq Tab PO 20 meq BID-WM DORY Administration Ranolazine 1,000 mg 07/18/20 21:00 07/19/20 08:09 Ranolazine 500 Mg Tab PO Not Given BID DORY Saccharomyces Boulardii 250 mg 07/19/20 09:00 07/19/20 09:31 Saccharomyces Boulardii 250 Mg Cap PO 250 mg DAILY DORY Administration Ticagrelor 90 mg 07/18/20 21:00 07/19/20 09:31 Ticagrelor 90 Mg Tablet PO 90 mg BID DORY Administration Valacyclovir HCl 500 mg 07/18/20 21:00 07/19/20 08:09 Valacyclovir 500 Mg Tab PO Not Given BID DORY - Exam General Appearance: ill appearing Neck: supple, no JVD Heart: RRR, no gallops, no rubs, normal peripheral pulses Respiratory: no wheezes, no rales, normal chest expansion, rhonchi Respiratory - other findings: Decreased air entry at bases Gastrointestinal: soft, non-tender, normal bowel sounds, no guarding, no rigidity Extremities: no cyanosis Neurological: no new deficit Musculoskeletal: normal tone, generalized weakness Psychiatric: normal affect, A&O x 3 Hosp A/P - Plan DVT proph w/lovenox, DVT proph w/SCDs Acute hypoxic and hypercapnic respiratory failure Acute on chronic systolic/diastolic heart failure exacerbation Coronary artery disease status post CABG and several stents COPD Hypokalemia/hypomagnesemia Lactic acidosis Hypertension Diabetes mellitus type 2 CKD stage III Chronic iron deficiency anemia Hyperlipidemia GERD Anxiety Chronic pain syndrome Plan: Case discussed with primary cardiology Dr. Cartagena at [facility]. Karolina burnett had a cardiac catheterization in 2018 that showed 1 patent graft. Patient has several stents as well. Her ejection fraction 2 years ago was 30 to 35%. Will continue gentle diuretics. Magnesium was replaced. Continue aspirin with Brilinta. Patient is allergic to RALF inhibitor. Continue home dose of beta-blockers. Recheck labs in a.m. Troponin elevation was probably due to type II [place]. Continue other medications as above. Cardiac rehabilitation. Patient will require 1-2 more days for stabilization. Counseled on congestive heart failure.
--- NOTE | 2020-07-19 14:41 | CON ---
DATE OF CONSULTATION: REASON FOR CONSULTATION: Elevated troponin. HISTORY OF PRESENT ILLNESS: The patient is a very pleasant 79-year-old woman with a history of CAD, status post bypass surgery. She is followed by Dr. En Cartagena at [facility]. She recently underwent coronary angiography in 2018. She was found to have one patent graft only. She had backfilling into the REYES. She had severe in-stent restenoses of the circumflex artery, and was decided to proceed with medical therapy due to in-stent restenoses x2 in a short time period. She also had complete occlusion of the right coronary artery with no graft. She recently presented with acute onset of shortness of breath. She states she feels much better. She denied chest pain, pressure, or other associated symptoms. PAST MEDICAL HISTORY: CAD, status post bypass surgery; diabetes mellitus; hypertension; chronic kidney disease; diastolic dysfunction; anxiety disorder. PAST SURGICAL HISTORY: CAD, status post stent x7; EGD. FAMILY HISTORY: Negative for CAD. SOCIAL HISTORY: No current tobacco or alcohol use. REVIEW OF SYSTEMS: A 10-point review of systems is reviewed as above, otherwise negative. PHYSICAL EXAMINATION: GENERAL: Patient is a pleasant 79-year-old woman who is in no acute distress. The patient appears their stated age. VITAL SIGNS: Blood pressure 120/59, pulse 71, temperature 98.6. NEUROLOGIC: The patient is alert and oriented x3 with no focal neurologic deficits. HEENT: Sclerae without icterus. Mouth has moist mucous membranes with normal pallor. NECK: No JVD. Carotid upstroke brisk. No bruits bilaterally. LUNGS: Clear to auscultation with unlabored respirations. BACK: No scoliosis or kyphosis. CARDIAC: Regular rate and rhythm with normal S1 and S2. No S3 or S4 noted. No significant rubs, murmurs, thrills, or gallops noted throughout the precordium. PMI is not displaced. There is no parasternal heave. ABDOMEN: Soft, nontender, nondistended. No peritoneal signs present. No hepatosplenomegaly. No abnormal striae. EXTREMITIES: 2+ femoral and 2+ dorsalis pedis pulses. No cyanosis, clubbing, or edema. SKIN: No gross abnormalities. PERTINENT LABORATORY DATA: Hemoglobin 10.6, hematocrit 32.1. Creatinine 0.7. Peak troponin 0.3. IMPRESSION: 1. Elevated troponin. 2. Likely diastolic dysfunction. 3. Status post stent. RECOMMENDATIONS: Ms. García's symptoms likely secondary to demand ischemia and not from acute insult. She has been treated medically over the last 2 years. She prefers to proceed with continued medical therapy. She has significant concerns about proceeding with a more aggressive approach. At this point, we would continue with treatment. Continue Ranexa in addition to beta-oanh therapy, aspirin, and statin treatment. We would consider Imdur. We would recommend keeping in the hospital over the next 24 to 48 hours and make sure she is stable. If stable, okay for discharge on Sunday. Job ID: [id number]
[2020-07-19] MEDS: ALPRAZolam 0.25 MG TAB PO PRN (16:28)
[2020-07-19] MEDS: Enoxaparin Sodium 30 MG/0.3 ML SYRINGE SC SCH (20:21)
[2020-07-19] MEDS ORDERED: Enoxaparin Sodium 40 MG/0.4 ML SYRINGE SC SCH (21:00)
[2020-07-20 05:36] LABS: Anion Gap 13 mmol/L (10-20); BUN (Urea Nitrogen) 10 mg/dL (9.8-20.1); Calc. Creatinine Clearance 52 mL/min (70-130); Calcium 8.4 mg/dL (7.8-10.44); Carbon Dioxide 29 mmol/L (23-31); Chloride 104 mmol/L (98-107); Estimated GFR-MDRD 85; Glucose 118 mg/dL (83-110); Magnesium 1.7 mg/dL (1.6-2.6); Phosphorus 2.8 mg/dL (2.3-4.7); Potassium 3.6 mmol/L (3.5-5.1); Sodium 142 mmol/L (136-145)
[2020-07-20] MEDS: Mometasone 100 MCG/Formoterol 5 MCG 120 PUFF INHALER INH SCH ×2 (06:00→22:14)
[2020-07-20] MEDS: Furosemide 20 MG/2 ML VIAL SLOW IVP SCH ×2 (06:01→14:04)
[2020-07-20] MEDS: HYDROcodone/Acetaminophen 10/325 mg Tablet PO PRN ×4 (06:01→22:18)
[2020-07-20] MEDS: ALPRAZolam 0.25 MG TAB PO PRN (06:12)
[2020-07-20] MEDS ORDERED: Magnesium 2 GM/50 ML 2 GM in Premix Bag 1 BAG IVPB SCH (09:00)
--- NOTE | 2020-07-20 09:14 | PRG ---
DATE OF SERVICE: 07/20/2020 SUBJECTIVE: Ricky had an episode early this morning of increased shortness of breath. States she had to sit up. No chest pain or pressure noted. Her EKG on 07/[address]-T wave changes. Her troponin was mildly elevated. She is currently pain free and feels much better. OBJECTIVE: VITAL SIGNS: Blood pressure 139/63, pulse 79, and temperature 97.1. LUNGS: Clear to auscultation. HEART: Regular rate and rhythm. ABDOMEN: Soft, nontender, and nondistended. EXTREMITIES: No edema. IMPRESSION: 1. Shortness of breath. 2. Coronary artery disease. 3. Status post bypass surgery. 4. Status post stent placement. RECOMMENDATIONS: I had a long discussion with Ricky this morning. I had also discussed the case with Dr. Cantor. After reviewing her previous angiogram in 2018, it was felt repeat bypass surgery versus medical therapy were recommended, given the significant in-stent restenoses in a short amount of time for previously stented region. After discussing repeat angio with Ms. García, she is adamantly opposed to proceeding with a more aggressive approach, would like to continue with medical therapy. Certainly based on the angio, would agree. We will add nitroglycerin patch at 0.4 mcg/hour. Continue metoprolol in addition to continuing Ranexa. I am unsure of the dose of Ranexa, but would recommend Ranexa at 1000 mg b.i.d. Otherwise, continue aspirin in addition to Brilinta. If the patient has opted for medical therapy, may consider conservative/comfort measures. Dr. Cantor to discuss with the patient. Job ID: [id number]
[2020-07-20 10:51] VITALS: BMI 20.1
[2020-07-20] MEDS: Metoprolol Tartrate 50 MG TAB PO SCH (11:05)
[2020-07-20] MEDS: valACYclovir 500 MG TAB PO SCH ×2 (11:05→22:14)
[2020-07-20] MEDS: Potassium Chloride 20 MEQ TAB PO SCH ×2 (11:06→16:53)
[2020-07-20] MEDS: ALPRAZolam 0.5 MG TAB PO SCH ×2 (11:06→22:13)
[2020-07-20] MEDS: Montelukast Sodium 10 mg Tablet PO SCH (11:06)
[2020-07-20] MEDS: Saccharomyces boulardii 250 MG CAP PO SCH (11:06)
[2020-07-20] MEDS: Atorvastatin Calcium 40 MG TAB PO SCH (11:07)
[2020-07-20] MEDS: Loratadine 10 MG TAB PO SCH (11:07)
[2020-07-20] MEDS: Ferrous Sulfate 325 MG TAB PO SCH (11:07)
[2020-07-20] MEDS: Nitroglycerin 0.4mg/Hour PATCH TD SCH (11:08)
[2020-07-20] MEDS: TICAGRELOR 90 MG TABLET PO SCH ×2 (11:08→22:14)
--- NOTE | 2020-07-20 12:13 | PDOC.HOSPP ---
- Subjective Encounter Date: 07/20/20 Encounter Time: 10:00 Subjective: Patient seen and examined for respiratory failure due to congestive heart failure exacerbation. Had some shortness of breath with mild chest pressure earlier today. Denies any palpitations or syncope. No nausea or vomiting reported. - Objective Vital Signs & Weight: Vital Signs (12 hours) Temp Pulse Pulse Pulse Resp BP BP 07/20/20 11:01 98.4 F 102 H 20 07/20/20 09:54 98 104 H 118/56 L 135/63 07/20/20 08:50 98 F 83 24 H 07/20/20 06:56 07/20/20 04:00 97.1 F L 79 16 07/20/20 01:10 98.7 F BP Pulse Ox Pulse Ox Pulse Ox 07/20/20 11:01 131/61 98 07/20/20 09:54 94 L 99 07/20/20 08:50 133/63 99 07/20/20 06:56 96 07/20/20 04:00 139/63 98 07/20/20 01:10 Weight Admit Weight 107 lb 3.2 oz Weight 106 lb 9.6 oz I&O: 07/19/20 07/20/20 07/21/20 06:59 06:59 06:59 Intake Total 600 Output Total 1600 Balance -1000 Result Diagrams: 07/19/20 07:43 07/20/20 04:56 Additional Labs: Accuchecks 07/20/20 07/19/20 07/19/20 10:24 20:31 20:17 POC Glucose 197 H 200 H 145 H 07/19/20 17:16 POC Glucose 175 H EKG Reviewed by me: Yes (Sinus rhythm on telemetry) Hospitalist ROS - Review of Systems Gastrointestinal: denies: nausea, vomiting, abdominal pain, diarrhea, constipation, melena, hematochezia, other Genitourinary: denies: dysuria, frequency, incontinence, hematuria, retention, other - Medication Medications: Active Medications Generic Name Dose Route Start Last Admin Trade Name Freq PRN Reason Stop Dose Admin Hydrocodone Bitart/Acetaminophen 1 tab 07/18/20 20:05 07/20/20 11:05 Hydrocodone/Acetaminophen 10/325 Mg Tablet PO 1 tab Q4H PRN Administration Severe Pain (7-10) Alprazolam 0.5 mg 07/18/20 21:00 07/20/20 11:06 Alprazolam 0.5 Mg Tab PO 0.5 mg BID DORY Administration Alprazolam 0.25 mg 07/19/20 09:44 07/20/20 06:12 Alprazolam 0.25 Mg Tab PO 0.25 mg TIDPRN PRN Administration Anxiety Aspirin 81 mg 07/18/20 21:00 07/19/20 20:20 Aspirin 81 Mg Enteric Coated Tablet PO 81 mg HS DORY Administration Atorvastatin Calcium 40 mg 07/19/20 09:00 07/20/20 11:07 Atorvastatin Calcium 40 Mg Tab PO 40 mg DAILY DORY Administration Colestipol HCl 1 gm 07/18/20 21:00 07/19/20 20:36 Colestipol Hcl 1 Gm Tab PO 1 gm HS DORY Administration Enoxaparin Sodium 30 mg 07/19/20 21:00 07/19/20 20:21 Enoxaparin Sodium 30 Mg/0.3 Ml Syringe SC 30 mg 2100 DORY Administration Ferrous Sulfate 325 mg 07/19/20 08:00 07/20/20 11:07 Ferrous Sulfate 325 Mg Tab PO 325 mg QAM-WM DORY Administration Furosemide 20 mg 07/19/20 06:00 07/20/20 06:01 Furosemide 20 Mg/2 Ml Vial SLOW IVP 20 mg 0600,1400 DORY Administration Loratadine 10 mg 07/19/20 09:00 07/20/20 11:07 Loratadine 10 Mg Tab PO 10 mg DAILY DORY Administration Metoprolol Tartrate 50 mg 07/19/20 09:00 07/20/20 11:05 Metoprolol Tartrate 50 Mg Tab PO 50 mg DAILY DORY Administration Mometasone Furoate/Formoterol Fumar 1 puff 07/19/20 06:30 07/20/20 06:00 Mometasone 100 Mcg/Formoterol 5 Mcg 120 Puff Inhaler INH 1 puff BID-RT DORY Administration Montelukast Sodium 10 mg 07/19/20 09:00 07/20/20 11:06 Montelukast Sodium 10 Mg Tablet PO 10 mg DAILY DORY Administration Nitroglycerin 1 patch 07/20/20 09:00 07/20/20 11:08 Nitroglycerin 0.4mg/Hour Patch TD 1 patch DAILY DORY Administration Pantoprazole Sodium 40 mg 07/19/20 09:00 07/20/20 11:06 Pantoprazole 40 Mg Tab PO 40 mg DAILY DORY Administration Potassium Chloride 20 meq 07/19/20 08:00 07/20/20 11:06 Potassium Chloride 20 Meq Tab PO 20 meq BID-WM DORY Administration Ranolazine 1,000 mg 07/18/20 21:00 07/20/20 11:05 Ranolazine 500 Mg Tab PO 1,000 mg BID DORY Administration Saccharomyces Boulardii 250 mg 07/19/20 09:00 07/20/20 11:06 Saccharomyces Boulardii 250 Mg Cap PO 250 mg DAILY DORY Administration Ticagrelor 90 mg 07/18/20 21:00 07/20/20 11:08 Ticagrelor 90 Mg Tablet PO 90 mg BID DORY Administration Valacyclovir HCl 500 mg 07/18/20 21:00 07/20/20 11:05 Valacyclovir 500 Mg Tab PO 500 mg BID DORY Administration - Exam General Appearance: NAD Neck: supple, no JVD Heart: no gallops, no rubs Respiratory: no wheezes, rales, rhonchi Gastrointestinal: soft, non-tender, normal bowel sounds Extremities: no cyanosis, 1+ LE edema (Right lower extremity) Neurological: no new deficit Hosp A/P - Plan DVT proph w/SCDs Acute hypoxic and hypercapnic respiratory failure Acute on chronic systolic/diastolic heart failure exacerbation Coronary artery disease status post CABG and several stents Type II myocardial infarctionPOA COPD Hypokalemia/hypomagnesemia Lactic acidosis Hypertension Diabetes mellitus type 2 CKD stage III Chronic iron deficiency anemia Hyperlipidemia GERD Anxiety Chronic pain syndrome RALF inhibitor allergy Plan: Case discussed with cardiology. Patient is refusing cardiac catheterization. DNR verified. Continue aspirin with Brilinta. Continue beta-blockers. Replace magnesium. Continue IV Lasix. Nitro patch added. Will consult palliative care for evaluation of home hospice if patient agrees. Continue other medications as above. DC planning.
[2020-07-20] MEDS: HumaLOG 300 UNITS/3 ML VIAL SC PRN (17:37)
[2020-07-20] MEDS: Aspirin 81 mg Enteric Coated Tablet PO SCH (22:13)
[2020-07-20] MEDS: Enoxaparin Sodium 30 MG/0.3 ML SYRINGE SC SCH (22:14)
[2020-07-21 05:27] LABS: Anion Gap 16 mmol/L (10-20); BUN (Urea Nitrogen) 15 mg/dL (9.8-20.1); Calc. Creatinine Clearance 47 mL/min (70-130); Calcium 8.9 mg/dL (7.8-10.44); Carbon Dioxide 26 mmol/L (23-31); Chloride 103 mmol/L (98-107); Estimated GFR-MDRD 76; Glucose 151 mg/dL (83-110); Sodium 141 mmol/L (136-145)
[2020-07-21] MEDS: Furosemide 20 MG/2 ML VIAL SLOW IVP SCH ×2 (05:49→14:59)
[2020-07-21] MEDS: Mometasone 100 MCG/Formoterol 5 MCG 120 PUFF INHALER INH SCH (07:18)
--- NOTE | 2020-07-21 08:49 | PRG ---
DATE OF SERVICE: 07/21/2020 SUBJECTIVE: Ms. García is currently doing well. No current complaints. OBJECTIVE: VITAL SIGNS: Blood pressure 120/59, pulse , and temperature 97.5. LUNGS: Clear to auscultation. HEART: Regular rate and rhythm. ABDOMEN: Soft, nontender, nondistended. EXTREMITIES: No edema. PERTINENT LABORATORY DATA: Hemoglobin 10.6 and hematocrit 32.1. Creatinine 0.76. IMPRESSION: 1. Severe coronary artery disease. 2. Angina. 3. Status post stent placement and bypass surgery. RECOMMENDATIONS: Ms. García's status is stable. No current complaints. Nitroglycerin patch was added to her medical regime yesterday and appears to be tolerating well. She was placed on 0.4 . From my standpoint, okay to discharge home with outpatient followup with her primary mill dresser, Dr. En Cartagena. She would like to continue conservative therapy and not interested in more aggressive approach. We will sign off. Job ID: [id number]
[2020-07-21] MEDS: Nitroglycerin 0.4mg/Hour PATCH TD SCH (09:06)
[2020-07-21] MEDS: Loratadine 10 MG TAB PO SCH (09:07)
[2020-07-21] MEDS: valACYclovir 500 MG TAB PO SCH (09:07)
[2020-07-21] MEDS: Montelukast Sodium 10 mg Tablet PO SCH (09:07)
[2020-07-21] MEDS: Metoprolol Tartrate 50 MG TAB PO SCH (09:07)
[2020-07-21] MEDS: Atorvastatin Calcium 40 MG TAB PO SCH (09:07)
[2020-07-21] MEDS: Saccharomyces boulardii 250 MG CAP PO SCH (09:07)
[2020-07-21] MEDS: Potassium Chloride 20 MEQ TAB PO SCH ×2 (09:07→16:29)
[2020-07-21] MEDS: Ferrous Sulfate 325 MG TAB PO SCH (09:07)
[2020-07-21] MEDS: TICAGRELOR 90 MG TABLET PO SCH (09:08)
[2020-07-21] MEDS: ALPRAZolam 0.5 MG TAB PO SCH (09:08)
[2020-07-21] MEDS: HYDROcodone/Acetaminophen 10/325 mg Tablet PO PRN ×2 (09:10→15:01)
[2020-07-21] MEDS: HumaLOG 300 UNITS/3 ML VIAL SC PRN (11:49)
--- NOTE | 2020-07-21 12:06 | PQF ---
CLINICAL DOCUMENTATION CLARIFICATION FORM: Dear Dr. Cantor Date: 07/21/2020 Please exercise your independent, professional judgment in responding to the clarification form. Clinical indicators are provided on the bottom of this form for your review. Please check appropriate box(es): [ ] Protein Calorie Malnutrition: [ ] Mild [ x ] Moderate [ ] Other Malnutrition (please specify) [ ] Underweight without malnutrition [ ] Other diagnosis [ ] Unable to determine In addition, please specify: Present on Admission (POA): [ x ] Yes [ ] No [ ] Unable to determine For continuity of documentation, please document condition throughout progress notes and discharge summary. Thank You. To be completed by CDI/Coding staff for physician review: CLINICAL INDICATORS - SIGNS / SYMPTOMS / LABS / RESULTS AND LOCATION IN MR *Company Manager Assessment 07/20 (Chaka): BMI 20.1 Nutrition Dx: % weight change +6.6% x 3 weeks per EMR; -2.5% x <1year per pt Malnutrition Related To: COPD, CHF, aging process As Evidenced By: moderate temporalis and interosseous muscle wasting, mild orbital and buccal fat pad wasting suggestive of moderate malnutrition in the context of chronic illness. RISK FACTORS / RESULTS AND LOCATION IN MR H&P 07/18 (Sakshi) 79 yr old female with CHF, CAD s/p CABG, HTN and DM 2. A/P: Acute on chronic systolic /diastolic heart failure exacerbation. TREATMENT / RESULTS AND LOCATION IN MR 07/18: Consult Company Manager for Heart Failure. Moderate Malnutrition (in acute illness) Energy Intake: <75% of estimated energy requirement for > 7 days Weight Loss: 1-2%/1 week; 5%/ 1 month; 7.5%/3 months Other: mild body fat loss; mild muscle mass loss; mild fluid accumulation; Severe Malnutrition (in acute illness) Energy Intake: = 50% of estimated energy requirement for = 5 days Weight Loss: >2%/1 week; >5%/1 month; >7.5%/3 months Other: moderate body fat loss; moderate muscle mass loss; moderate- severe fluid accumulation; measurably reduced criminal profiler strength Moderate Malnutrition (in chronic illness) Energy Intake: <75% of estimated energy requirement for =1 month Weight Loss: 5%/1 month; 7.5%/3 months; 10%/6 months; 20%/1 year Other: mild body fat loss; mild muscle mass loss; mild fluid accumulation Severe Malnutrition (in chronic illness) Energy Intake: =75% of estimated energy requirement for =1 month Weight Loss: >5%/1 month; >7.5%/3 months; >10%/6 months; >20%/1 year Other: severe body fat loss; severe muscle mass loss; severe fluid accumulation; measurably reduced criminal profiler strength Thank Jessica anaya RN, [email or web address] This is a permanent part of the Medical Record MTDD
--- NOTE | 2020-07-21 13:13 | PDOC.DS.DS ---
Provider - Provider Date of Admission: 07/18/20 14:33 Date of Discharge: 07/21/20 Admitting Provider: Leo Cantor MD Consultations: Cardiology Primary Care Physician: Mikhail Varghese MD Course - Hospital Course Hospital Course: Patient is a 79-year-old female with congestive heart failure, coronary artery disease status post CABG and several stents placement followed by Shahida molina, hypertension and diabetes mellitus type 2 who presented to the emergency room on 07/18 with worsening shortness of breath. Her work-up was consistent with congestive heart failure exacerbation along with type II myocardial infarction with maximum troponin of 0.320. Patient was evaluated by cardiology Dr. Harris. Cardiac catheterization was offered however patient declined. She had intermittent chest pressure for which an nitroglycerin patch was added by cardiology. Patient has been cleared by cardiology for discharge. She was advised to follow-up with [facility] cardiology Dr. Cartagena as outpatient. Final diagnosis: Acute hypoxic and hypercapnic respiratory failure Acute on chronic systolic/diastolic heart failure exacerbation Coronary artery disease status post CABG and several stents Type II myocardial infarction COPD Hypokalemia/hypomagnesemia Lactic acidosis Hypertension Diabetes mellitus type 2 CKD stage III Chronic iron deficiency anemia Hyperlipidemia GERD Anxiety Chronic pain syndrome RALF inhibitor allergy Moderate PEM Time coordinating the discharge of this patient was 35 minutes. Resuscitation Status: 07/20/20 09:17 Resuscitation Status Routine Resuscitation Status: DNAR: NO Resuscitation Discussed with: verified with patient - Labs Lab Results: 07/19/20 07:43 07/21/20 04:01 Microbiology - Entire Visit 07/18/20 09:49 Venous blood - Left Hand Blood Culture - Preliminary NO GROWTH AT 48 HOURS 07/18/20 09:49 Venous blood - Right Hand Blood Culture - Preliminary NO GROWTH AT 48 HOURS 07/18/20 09:20 Urine Straight Catheter Urine Culture - Final NO GROWTH AT 48 HOURS 07/18/20 09:20 Nasopharyngeal swab Influenza Types A,B Direct EIA - Final - Diagnostic Interpretation CT scan - chest Status: image reviewed by me Additional comments: bilateral pleural effusions and bilateral pulmonary edema - Physical Exam Vitals: Vital Signs (12 hours) Temp Pulse Resp BP Pulse Ox 07/21/20 11:50 97.8 F 80 18 106/54 L 97 07/21/20 07:30 97.5 F L 87 18 130/63 97 07/21/20 04:00 97.5 F L 83 18 120/59 L Weight Admit Weight 107 lb 3.2 oz Weight 104 lb Physical Exam: The patient was seen and examined on the day of discharge. Plan - Discharge Medications Prescriptions: Furosemide 20 mg PO DAILY #30 tablet Nitroglycerin [Nitro-Dur Patch] 1 patch TD DAILY #30 patch Home Medications: Medication Instructions Recorded Confirmed Type ALPRAZolam [Xanax] 1 tab PO BID 02/16/20 07/18/20 History Aspirin [Aspirin EC] 81 mg PO DAILY 02/16/20 07/18/20 History Atorvastatin Calcium [Lipitor] 40 mg PO DAILY 02/16/20 07/18/20 History Esomeprazole Magnesium 40 mg PO DAILY 02/16/20 07/18/20 History Fexofenadine HCl [Allergy Relief] 180 mg PO DAILY 02/16/20 07/18/20 History Fluticasone/Salmeterol [Advair HFA 1 puff INH BID 02/16/20 07/18/20 History 115/21 Inhaler] Ipratropium/Albuterol Sulfate 1 puff INH QID PRN 02/16/20 07/18/20 History [Combivent Respimat] Metoprolol Tartrate [Lopressor] 50 mg PO DAILY 02/16/20 07/18/20 History Montelukast Sodium [Singulair] 10 mg PO DAILY 02/16/20 07/18/20 History Ranolazine [Ranexa] 1,000 mg PO BID 02/16/20 07/18/20 History Ticagrelor [Brilinta] 90 mg PO BID 02/16/20 07/18/20 History metFORMIN [Glucophage] 500 mg PO BID-WM 02/16/20 07/18/20 History valACYclovir HCl [Valtrex] 0.5 tab PO BID 02/16/20 07/18/20 History HYDROcodone/Acetaminophen [[place] 1 each PO Q4H PRN 07/01/20 07/18/20 History 10-325 Tablet] Colestipol HCl [Colestid] 1 gm PO HS #30 tab 07/05/20 07/18/20 Rx Saccharomyces boulardii [Florastor] 250 mg PO DAILY #30 cap 07/05/20 07/18/20 Rx Potassium Chloride [K-Dur] 20 meq PO DAILY 07/18/20 07/18/20 History Lansoprazole 30 mg PO DAILY 07/19/20 07/19/20 History Ondansetron [Zofran ODT] 4 mg PO TID PRN 07/19/20 07/19/20 History Furosemide 20 mg PO DAILY #30 tablet 07/21/20 Rx Nitroglycerin [Nitro-Dur Patch] 1 patch TD DAILY #30 patch 07/21/20 Rx Allergies: fenofibrate [From Tricor] Allergy (Verified 07/19/20 00:04) ibandronate sodium [From Boniva] Allergy (Verified 07/19/20 00:04) lisinopril Allergy (Verified 07/19/20 00:04) morphine Allergy (Verified 07/19/20 00:04) NSAIDS (Non-Steroidal Anti-Inflamma Allergy (Verified 07/19/20 00:04) Sulfa (Sulfonamide Antibiotics) Allergy (Verified 07/19/20 00:04) - Discharge Instructions Discharge Instructions:: Fall precautions BMP after 1 week - PCP to arrange/follow Nourishment:: Fluid Restriction Diet (1 lit/day), Heart Healthy Diet Therapies:: Home Health - Follow up Plan Referrals: Cardiac Rehab - [facility] [Outside] - 7 Days (Your doctor has ordered outpatient cardiac rehab for you to begin within 1-2 weeks after you go home from the hospital. The location nearest to you is the [facility]. We will call you in 3-5 days to get you scheduled for your evaluation. If you do not receive a call, please reach out to us at [phone] and request an appointment.) [facility] ([facility]) [Outside] (Currently on home health services.) Abraham Cartagena DO [MD Not on Staff] - 7 Days Mikhail Varghese MD [Primary Care Provider] - 7 Days Disposition: HOME HEALTH Quality - Care Measures CORE MEASURES:: N/A
[2020-07-21 15:05] VITALS: BP 124/59; TEMP 97.1
== END 2020-07-21 16:40 | disposition home health service (06) | DRG 280 ==
LOC: ERS 08:30 → ERHOLD 14:33 → 2SW 23:02 → 2NO 07-20 20:56
PROVIDERS: ADMIT Internal Medicine; ATTEND Internal Medicine
DX: I13.0 Hypertensive heart and chronic kidney disease with heart failure and stage 1 through stage 4 chronic kidney disease, or unspecified chronic kidney disease (principal); I50.43 Acute on chronic combined systolic (congestive) and diastolic (congestive) heart failure; I21.A1 Myocardial infarction type 2; J96.01 Acute respiratory failure with hypoxia; J96.02 Acute respiratory failure with hypercapnia; E87.2 Acidosis; E44.0 Moderate protein-calorie malnutrition; Z68.1 Body mass index [BMI] 19.9 or less, adult; Z20.828 Contact with and (suspected) exposure to other viral communicable diseases; Z66 Do not resuscitate; I25.10 Atherosclerotic heart disease of native coronary artery without angina pectoris; N18.30 Chronic kidney disease, stage 3 unspecified; G89.4 Chronic pain syndrome; D50.9 Iron deficiency anemia, unspecified; J44.9 Chronic obstructive pulmonary disease, unspecified; E11.22 Type 2 diabetes mellitus with diabetic chronic kidney disease; K21.9 Gastro-esophageal reflux disease without esophagitis; F41.9 Anxiety disorder, unspecified; E86.9 Volume depletion, unspecified; E78.5 Hyperlipidemia, unspecified; I08.1 Rheumatic disorders of both mitral and tricuspid valves; E87.6 Hypokalemia; E83.42 Hypomagnesemia; Z95.1 Presence of aortocoronary bypass graft; Z95.5 Presence of coronary angioplasty implant and graft; Z88.2 Allergy status to sulfonamides; Z88.6 Allergy status to analgesic agent; Z88.8 Allergy status to other drugs, medicaments and biological substances
CPT/HCPCS: 36415; 36416; 36600; 51701; 71045; 71046; 71275; 80048; 80053; 81003; 81015; 82553; 82805; 83605; 83735; 83880; 84100; 84443; 84484; 85025; 85379; 85610; 85730; 87040; 87086; 87635; 87804; 93005; 93798; 94660; 94760; 96365; 96366; 96367; 96372; 96375; 96376; J0456; J0692; J1100; J1650; J1940; J1956; J2060; J2405; J3475; J7050; Q9967; U0002; U0003